=== PATIENT | female | born 1990 | race Caucasian/White ===

== ENCOUNTER → 2016-09-18 | Outpatient (CLI) | payer BC ==
--- NOTE | 2016-09-19 02:26 | MR ---
EXAMINATION TYPE: MR wrist LT wo con DATE OF EXAM: 09/18/2016 COMPARISON: NONE HISTORY: Palpable lump anterior wrist, has been there for several years, recent numbness in fingers Standard multiplanar, multisequence MRI departmental protocol Multiplanar, multisequence images of the left wrist were acquired. FINDINGS: Flexor and extensor tendons of the wrist appear intact. Carpal bones of normal signal patte rn without evidence of edema. There is no evidence of fracture. Distal radius and ulna appear intact. Proximal metacarpals appear intact. There is a 6 x 4 mm rounded fluid collection in the dorsal aspec t of the lunate. Granular cartilage appears intact. IMPRESSION: No fracture. Small synovial cyst noted on the posterior aspect of the lunate.
== END | disposition home or self-care (01) ==
LOC: EDSEX → RADMRIMAIN 19:48
PROVIDERS: ATTEND Orthopaedic Surgery
DX: M71.332 Other bursal cyst, left wrist (principal)

== ENCOUNTER → 2020-06-21 | Outpatient (CLI) | payer BC ==
--- NOTE | 2020-06-23 21:49 | CT ---
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 TECHNIQUE: Axial images at 3 mm thick sections. Reconstructed images in the coronal plane and sagitt al plane are reviewed. FINDINGS: Limited CT sections are obtained the lung apices. The lung apices appear clear. CT neck: The torus tubarius and fossa of Rosenmuller are normal. Robot Designer spaces are normal. Ther e is mucosal thickening through the right maxillary sinus. Remaining paranasal sinuses visualized tom ear clear. Mastoid air cells are clear. There is been a left parotidectomy. Soft tissue thickening is to the left more superficial area later al to the sternocleidomastoid muscle. This is nonspecific and can be postsurgical in nature. Submandi bular glands, are normal. Parapharyngeal spaces are normal. No suspicious adenopathy is evident. The hypopharynx appears within normal limits. Vocal cord level appear symmetrical. Little thyroid is visualized. This may be atrophic or postsurgical. No acute changes are evident within the osseous structures. IMPRESSIONS: 1. Status post left parotidectomy. Postsurgical changes. 3 present superficially. Recurrent masses de ep to the musculature within the parotid bed are not evident. 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 CONTRAST: Performed injected with 100 ml mL of Isovue 300. TECHNIQUE: Axial images were obtained at 5 mm thick sections. Reconstructed images are reviewed on [employer] computer in the coronal plane. FINDINGS: Thyroid is poorly visualized. No suspicious lung nodules or focal infiltrates are present. No enlarged mediastinal or hilar adenopathy is evident. The ascending aorta diameter at the level o f the main pulmonary artery is 3.1 cm. The main pulmonary artery diameter at the bifurcation is 0.[address] sections are obtained through the upper abdomen. Abdomen is essentially unremarkable. IMPRESSIONS: 1. Normal Chest CT. No suspicious changes to suggest metastatic disease.
== END | disposition home or self-care (01) ==
LOC: RADCTMAIN 09:53
PROVIDERS: ATTEND Otolaryngology
DX: C07 Malignant neoplasm of parotid gland (principal)
CPT/HCPCS: 70491; 71260; Q9967

== ENCOUNTER → 2020-07-01 | Outpatient (CLI) | payer BC | END | disposition home or self-care (01) | LOC: LABWHC1 15:50 | PROVIDERS: ATTEND Nurse Practitioner | DX: U07.1 COVID-19 (principal) | CPT/HCPCS: 87635; C9803 ==

== ENCOUNTER 2021-06-21 08:16 | Emergency (ER) | payer BC ==
[2021-06-21] MEDS ORDERED: methylPREDNISolone SOD SUCCI 125 MG/2 ML VIAL IM ONE (08:29)
[2021-06-21] MEDS ORDERED: diphenhydrAMINE 25 MG CAP PO STA (08:29)
[2021-06-21] MEDS ORDERED: FAMOTIDINE 20 MG TAB PO STA (08:29)
[2021-06-21 09:06] VITALS: BP 134/78; PULSE 88; RESP 18; TEMP 98.6
--- NOTE | 2021-06-21 09:09 | ED ---
General Adult HPI - General Chief complaint: Skin/Abscess/Foreign Body Stated complaint: Hives, post CT Time Seen by Provider: 06/21/21 08:19 Source: patient, RN notes reviewed, old records reviewed Mode of arrival: ambulatory Limitations: no limitations - History of Present Illness Initial comments: Patient is a 30-year-old male with past history remarkable for cancer, neck surgery who was receiving a CT scan outpatient to evaluate and follow up on his cancer presents to the emergency department after experiencing an urticarial rash following contrast administration.Describes the rash as small red bumps that itch. Denies any difficulty breathing, difficulty swallowing, tongue swelling. Is not currently undergoing radiation and chemo. Currently otherwise is resting comfortably. IV was pulled and he was sent over to the emergency department for evaluation. Has no known ALLERGIES. Denies chest pain, nausea, vomiting, diarrhea, abdominal pain, shortness of breath. - Related Data Home Medications Medication Instructions Recorded Confirmed Levothyroxine Sodium [Synthroid] 75 mcg PO DAILY 02/14/14 02/05/15 Testosterone Cypionate 100 mg IM DIRECTED 02/14/14 02/05/15 [Depo-Testosterone] Atorvastatin [Lipitor] 1 tab PO DAILY 02/05/15 02/05/15 Omeprazole 1 tab PO DAILY 02/05/15 02/05/15 Previous Rx's Medication Instructions Recorded Cyclobenzaprine [Flexeril] 10 mg PO TID PRN #15 tab 02/14/14 Famotidine 40 mg PO DAILY 7 Days #7 tab 06/21/21 diphenhydrAMINE HCL [Benadryl] 25 mg PO Q6HR PRN #28 tab 06/21/21 Allergies Allergy/AdvReac Type Severity Reaction Status Date / Time Iodine and Iodide Containing Allergy Rash/Hives Verified 06/21/21 09:49 Produc Review of Systems ROS Statement: Those systems with pertinent positive or pertinent negative responses have been documented in the HPI. Review of Systems: CONST: Denies fever EYES: Denies blurry vision ENT: Denies nasal congestion C/V: Denies Chest pain RESP: Denies shortness of breath GI: Denies abdominal pain : Denies dysuria SKIN: Endorses itchy rash to chest. MSK: Denies joint pain. NEURO: Denies headache ROS Other: All systems not noted in ROS Statement are negative. Past Medical History Past Medical History: Cancer, Hyperlipidemia, Thyroid Disorder Additional Past Medical History / Comment(s): thyroid cancer History of Any Multi-Drug Resistant Organisms: None Reported Past Surgical History: Adenoidectomy, Ear Surgery, Tonsillectomy Additional Past Surgical History / Comment(s): thyroidectomy Past Psychological History: No Psychological Hx Reported Smoking Status: Never smoker Past Alcohol Use History: None Reported Past Drug Use History: Marijuana General Exam - General Exam Comments Initial Comments: General: Appears in no acute distress. HEAD: Normal with no signs of head trauma. EYES: PERRLA, EOMI, conjunctiva normal, no discharge. ENT: Hearing grossly intact, normal oropharynx. No stridor auscultated. RESPIRATORY: Clear breath sounds bilaterally. No wheezes, rales, or rhonchi. No hypoxia. No increased work of breathing. C/V: Regular rate and rhythm. S1 and S2 auscultated, no edema, peripheral pulses 2+ and intact throughout ABD: Abd is soft, nontender, nondistended EXT: Normal range of motion, no obvious deformity SKIN: Erythematous papular rash located over the anterior chest NEURO: Alert and oriented x 4. Cranial nerves II-XII intact. No focal sensory or strength deficits. Limitations: no limitations Course Vital Signs 06/21/21 06/21/21 08:17 09:05 Temperature 98.5 F 98.6 F Pulse Rate 74 88 Respiratory 20 18 Rate Blood Pressure 120/75 134/78 O2 Sat by Pulse 97 99 Oximetry Medical Decision Making - Medical Decision Making Based on the patient's presentation and physical exam, does appear that he had a ALLERGIC reaction, localized urticaria to the chest following contrast dye administration. I did update his ALLERGY chart. His no signs of anaphylaxis at this time, including no stridor, difficulty breathing, hypoxia, nausea, vomiting. Has no difficulty swallowing and is tolerating oral intake. He was administered contrast dye approximately 20 minutes prior to arrival. He is resting comfortably at this time. I do not believe that we require any laboratory studies or imaging at this time. He will be administered a steroid injection as well as famotidine and Benadryl. He'll be observed until approximately 9 AM. He was in agreement this plan. Patient tolerated the medications well. Rashes improved and itching is improved at this time. Vital signs remained within normal limits and stable throughout his stay. I believe it is safe for him to be discharged home. He was in agreement with this plan. We discussed signs of worsening ALLERGIC reaction including difficulty breathing, nausea, vomiting, difficulty swallowing. He'll be given a prescription for Benadryl and famotidine for home. He was in agreement with the plan. I will provide the patient with a prescription for famotidine, Benadryl. I instructed the patient to follow up with their PCP in the next 3 days. I explained that the patient should return to the emergency department if they experience any worsening symptoms. Strict return precautions were discussed with the patient. The patient expressed understanding of these instructions. I answered all questions that the patient had. The patient was discharged home in good condition with their prescriptions and follow up information. Disposition Clinical Impression: Allergic reaction Disposition: HOME SELF-CARE Condition: Good Instructions (If sedation given, give patient instructions): Urticaria (ED), Allergies (ED) Prescriptions: diphenhydrAMINE HCL [Benadryl] 25 mg PO Q6HR PRN #28 tab PRN Reason: Itching Famotidine 40 mg PO DAILY 7 Days #7 tab Is patient prescribed a controlled substance at d/c from ED?: No Referrals: Miller Flores MD [Primary Care Provider] - 1-2 days Time of Disposition: 09:00
== END 2021-06-21 09:04 | disposition home or self-care (01) ==
LOC: EDSEX → EC 08:16
DX: T78.40XA Allergy, unspecified, initial encounter (principal); E78.5 Hyperlipidemia, unspecified; Z79.890 Hormone replacement therapy; Z79.899 Other long term (current) drug therapy
CPT/HCPCS: 99283; 96372; J2930

== ENCOUNTER → 2021-06-21 | Outpatient (CLI) | payer BC ==
--- NOTE | 2021-06-22 22:01 | CT ---
EXAMINATION TYPE: CT soft tissue neck w con DATE OF EXAM: 06/21/2021 HISTORY: HX of Parotid gland and thyroid cancer COMPARISON: CT neck and chest one year earlier. CT DLP: 873.60 mGycm. Automated Exposure Control for Dose Reduction was Utilized. TECHNIQUE: CT scan of the neck is performed with IV Contrast, patient injected with 100 ml mL of Iso ele 300, axial images are obtained, coronal and sagittal reformatted images are reviewed. FINDINGS: Airway: Increased soft tissue anterior superior mediastinum likely reflects thymic rebound unchanged from prior. Somewhat small size thyroid gland redemonstrated. Parotid/submandibular glands: Slight asymmetric diminished size to left submandibular gland redemonst rated. Extensive surgical change to the left parotid gland again seen. There are deeper surgical clip s with fat density graft along with lateral irregular soft tissue or scarring extending superiorly to the level of the ear redemonstrated. No significant change from prior study. No new enhancing masses are greater than 1 cm adenopathy identified. Carotid/Vascular Structures: No significant abnormality. Osseous Structures: Slight scoliotic curvature on the coronal images redemonstrated. Other: Mucous retention cysts and/or polyps in the posterior inferior right maxillary sinus redemonst rated. IMPRESSION: Extensive posttreatment changes to the region of the left parotid gland redemonstrated. N o suspicious new or enlarging masses or adenopathy to suggest neoplastic recurrence.
== END | disposition home or self-care (01) ==
LOC: RADCTMAIN 07:30 → EDSEX 07:30
PROVIDERS: ATTEND Otolaryngology
DX: C07 Malignant neoplasm of parotid gland (principal)
CPT/HCPCS: 70491; Q9967

== ENCOUNTER → 2021-09-05 | Outpatient (CLI) | payer BC ==
--- NOTE | 2021-09-05 07:40 | CT ---
EXAMINATION TYPE: CT sinus wo con DATE OF EXAM: 09/05/2021 COMPARISON: None HISTORY: Chronic Sinusitis CT DLP: 590.[address] of the paranasal sinuses was performed in the axial and coronal planes. Bone and soft tissue settings are submitted. The paranasal sinuses demonstrate normal aeration and development. Mucosal thickening is noted to involve the bilateral maxillary sinuses right greater than left with s ome mucous retention cysts seen within the right maxillary sinus. Mild mucosal thickening right-sided ethmoid air cells. Remaining paranasal sinuses are well-aerated. The osteal meatal units are patent bilaterally. The nasal septum is midline. No bony destructive changes are seen within the field of view. IMPRESSION: Chronic sinusitis.
== END | disposition home or self-care (01) ==
LOC: RADCTMAIN 06:33
PROVIDERS: ATTEND Otolaryngology
DX: J32.9 Chronic sinusitis, unspecified (principal)
CPT/HCPCS: 70486

== ENCOUNTER → 2023-01-21 | Outpatient (CLI) | payer MEDICAID ==
--- NOTE | 2023-01-21 19:59 | CT ---
EXAMINATION TYPE: CT soft tissue neck w con DATE OF EXAM: 01/21/2023 COMPARISON: 06/21/2021 HISTORY: Malignant neoplasm of parotid gland. Hx of thyroid cancer. CT DLP: 934.2 mGycm CONTRAST: Patient injected with 100ml mL of Isovue 300. TECHNIQUE: Axial images at 3 mm thick sections. Reconstructed images in the coronal plane and sagitt al plane are reviewed. FINDINGS: Limited CT sections are obtained the lung apices. The lung apices appear clear. CT neck: The torus tubarius and fossa of Rosenmuller are normal. Sleever spaces are normal. Para nasal sinuses and mastoid air cells are clear. Left parotid gland is surgically absent. The right parotid gland appears unremarkable. Submandibular glands, are normal. Parapharyngeal spaces are normal. No suspicious adenopathy is evident. The hypopharynx appears within normal limits. Vocal cord level appear symmetrical. Thyroid as visualized is normal. Osseous structures are normal. IMPRESSION: 1. No suspicious changes of recurrent or metastatic left parotid gland neoplasm.
== END | disposition home or self-care (01) ==
LOC: RADCTMAIN 07:40
PROVIDERS: ATTEND Radiology Radiation Oncology
DX: C07 Malignant neoplasm of parotid gland (principal); K13.70 Unspecified lesions of oral mucosa; Z90.89 Acquired absence of other organs; Z92.3 Personal history of irradiation; Z85.850 Personal history of malignant neoplasm of thyroid; Z85.50 Personal history of malignant neoplasm of unspecified urinary tract organ
CPT/HCPCS: 70491; Q9967

== ENCOUNTER 2023-04-21 08:57 | Emergency (ER) | payer MEDICAID ==
[2023-04-21 09:12] VITALS: RESP 18; TEMP 98.3
--- NOTE | 2023-04-21 09:48 | XR ---
EXAMINATION TYPE: XR chest 2V DATE OF EXAM: 04/21/2023 COMPARISON: NONE HISTORY: Chest pain TECHNIQUE: Frontal and lateral views of the chest are obtained. FINDINGS: There is no focal air space opacity. No evidence for pneumothorax. No pleural effusion. The cardiac silhouette size is within normal limits. The osseous structures are grossly intact. IMPRESSION: 1. No acute cardiopulmonary process.
--- NOTE | 2023-04-21 10:30 | ED ---
URI HPI - General Chief Complaint: Upper Respiratory Infection Stated Complaint: BLOODY MUCUS Time Seen by Provider: 04/21/23 09:03 Source: patient, RN notes reviewed Mode of arrival: ambulatory Limitations: no limitations - History of Present Illness Initial Comments: 32-year-old male presents emergency department with chief complaint of cough and congestion. Patient states he has had possible fever chills body aches increasing nasal congestion, facial pressure and productive cough. He states his cough is productive with mucus that had bloody specks in it. He states that his chest is very tight. Patient states he does have a history of asthma in which she was seen Dr. Rick in the past. Patient denies any localized abdominal pain - Related Data Home Medications Medication Instructions Recorded Confirmed Levothyroxine Sodium [Synthroid] 75 mcg PO DAILY 02/14/14 02/05/15 Testosterone Cypionate 100 mg IM DIRECTED 02/14/14 02/05/15 [Depo-Testosterone] Atorvastatin [Lipitor] 1 tab PO DAILY 02/05/15 02/05/15 Omeprazole 1 tab PO DAILY 02/05/15 02/05/15 Previous Rx's Medication Instructions Recorded Cyclobenzaprine [Flexeril] 10 mg PO TID PRN #15 tab 02/14/14 Famotidine 40 mg PO DAILY 7 Days #7 tab 06/21/21 diphenhydrAMINE HCL [Benadryl] 25 mg PO Q6HR PRN #28 tab 06/21/21 Amoxic-Pot Clav 875-125Mg 1 tab PO Q12HR #20 tab 04/21/23 [Augmentin 875-125] Fluconazole [Diflucan] 150 mg PO ONCE #5 tab 04/21/23 predniSONE 50 mg PO DAILY #5 tab 04/21/23 Allergies Allergy/AdvReac Type Severity Reaction Status Date / Time Iodine and Iodide Containing Allergy Rash/Hives Verified 04/21/23 09:03 Produc Review of Systems ROS Statement: Those systems with pertinent positive or pertinent negative responses have been documented in the HPI. ROS Other: All systems not noted in ROS Statement are negative. Past Medical History Past Medical History: Cancer, Hyperlipidemia, Thyroid Disorder Additional Past Medical History / Comment(s): thyroid cancer History of Any Multi-Drug Resistant Organisms: None Reported Past Surgical History: Adenoidectomy, Ear Surgery, Tonsillectomy Additional Past Surgical History / Comment(s): thyroidectomy Past Psychological History: No Psychological Hx Reported, ADD/ADHD Smoking Status: Never smoker Past Alcohol Use History: None Reported, Rare Past Drug Use History: Marijuana General Exam Limitations: no limitations General appearance: alert, in no apparent distress Head exam: Present: atraumatic, normocephalic, normal inspection Neck exam: Present: normal inspection. Absent: tenderness, meningismus, lymphadenopathy Respiratory exam: Present: wheezes, decreased breath sounds. Absent: normal lung sounds bilaterally, respiratory distress, rales, rhonchi, stridor Cardiovascular Exam: Present: regular rate, normal rhythm, normal heart sounds. Absent: systolic murmur, diastolic murmur, rubs, gallop, clicks GI/Abdominal exam: Present: soft, normal bowel sounds. Absent: distended, tenderness, guarding, rebound, rigid Course Vital Signs 04/21/23 04/21/23 04/21/23 08:58 09:19 10:49 Temperature 98.3 F Pulse Rate 95 88 Respiratory 18 18 Rate Blood Pressure 116/78 O2 Sat by Pulse 99 Oximetry 04/21/23 04/21/23 11:06 11:41 Temperature 98.3 F Pulse Rate 92 90 Respiratory 18 Rate Blood Pressure 120/84 O2 Sat by Pulse 99 Oximetry Medical Decision Making - Medical Decision Making Was pt. sent in by a medical professional or institution (RACHAEL Blas, SECURITY POLICE OFFICER, urgent care, hospital, or long term...) When possible be specific @ -No Did you speak to anyone other than the patient for history (EMS, parent, family, police, friend...)? What history was obtained from this source @ -No Did you review nursing and triage notes (agree or disagree)? Why? @ -I reviewed and agree with nursing and triage notes Were old charts reviewed (outside hosp., previous admission, EMS record, old EKG, old radiological studies, urgent care reports/EKG's, long term records)? Report findings @ -No old charts were reviewed Differential Diagnosis (chest pain, altered mental status, abdominal pain women, abdominal pain men, vaginal bleeding, weakness, fever, dyspnea, syncope, headache, dizziness, GI bleed, back pain, seizure, CVA, palpatations, mental health, musculoskeletal)? @ -COVID 19, RSV, influenza, pneumonia, acute bronchitis, URI, this list is not all inclusive EKG interpreted by me (3pts min.). @ -[None X-rays interpreted by me (1pt min.). @ -Chest today shows no acute cardiopulmonary process CT interpreted by me (1pt min.). @ -[None done U/S interpreted by me (1pt. min.). @ -None done What testing was considered but not performed or refused? (CT, X-rays, U/S, labs)? Why? @ -None What meds were considered but not given or refused? Why? @ -None Did you discuss the management of the patient with other professionals (professionals i.e. , PA, SECURITY POLICE OFFICER, lab, RT, psych nurse, older adult social work specialist, registered pharmacist, teacher, corporate officer, catalytic case operator)? Give summary @ -No Was smoking cessation discussed for >3mins.? @ -No Was critical care preformed (if so, how long)? @ -No Were there social determinants of health that impacted care today? How? (Homelessness, low income, unemployed, alcoholism, drug addiction, transpor tation, low edu. Level, literacy, decrease access to med. care, assisted, rehab)? @ -No Was there de-escalation of care discussed even if they declined (Discuss DNR or withdrawal of care, Hospice)? DNR status @ -No What co-morbidities impacted this encounter? (DM, HTN, Smoking, COPD, CAD, Cancer, CVA, ARF, Chemo, Hep., AIDS, mental health diagnosis, sleep apnea, morbid obesity)? @ -[Asthma Was patient admitted / discharged? Hospital course, mention meds given and route, prescriptions, significant lab abnormalities, going to OR and other pertinent info. @ -Patient has diffuse wheezing, rhonchi. Patient does not have evidence of pneumonia on x-ray though concern for early pneumonia changes. Patient was given soluMedrol, Rocephin was given breathing treatment which has improved some. Patient discharged on antibiotics, steroids Undiagnosed new problem with uncertain prognosis? @ -[No Drug Therapy requiring intensive monitoring for toxicity (Heparin, Nitro, Insulin, Cardizem)? @ -No Were any procedures done? @ -No Diagnosis/symptom? @ -[Tracheobronchitis, asthmatic Acute, or Chronic, or Acute on Chronic? @ -Acute Uncomplicated (without systemic symptoms) or Complicated (systemic symptoms)? @ -[Uncomplicated Side effects of treatment? @ -[No Exacerbation, Progression, or Severe Exacerbation? @ -No Poses a threat to life or bodily function? How? (Chest pain, [place], SC, pneumonia, PE, COPD, DKA, ARF, appy, cholecystitis, CVA, Diverticulitis, Homicidal, Suicidal, threat to staff... and all critical care pts) @ -No - Lab Data Lab Results 04/21/23 Range/Units 09:28 Influenza Type A (PCR) Not Detected (Not Detectd) Influenza Type B (PCR) Not Detected (Not Detectd) RSV (PCR) Not Detected (Not Detectd) SARS-CoV-2 (PCR) Not Detected (Not Detectd) Disposition Clinical Impression: Tracheobronchitis, Asthmatic bronchitis Disposition: HOME SELF-CARE Condition: Stable Instructions (If sedation given, give patient instructions): Upper Respiratory Infection (ED) Additional Instructions: Please return to the Emergency Department if symptoms worsen or any other concerns. Prescriptions: Amoxic-Pot Clav 875-125Mg [Augmentin 875-125] 1 tab PO Q12HR #20 tab Fluconazole [Diflucan] 150 mg PO ONCE #5 tab predniSONE 50 mg PO DAILY #5 tab Is patient prescribed a controlled substance at d/c from ED?: No Referrals: Miller Flores MD [Primary Care Provider] - 1-2 days Tyrone Norris MD [STAFF PHYSICIAN] - 1-2 days Time of Disposition: 11:11
[2023-04-21] MEDS: IPRATROPIUM-ALBUTEROL 3 ML NEB INHALATION STA (10:49)
[2023-04-21] MEDS: ACET/COD 300 MG/30 MG STARTER PACK 6 TAB BTL PO STA (11:35)
[2023-04-21] MEDS: methylPREDNISolone SOD SUCCI 125 MG/2 ML VIAL IM ONE (11:35)
[2023-04-21] MEDS: cefTRIAXone 1,000 MG VIAL (IM USE) IM STA (11:35)
[2023-04-21 11:45] VITALS: BP 120/84; PULSE 90
== END 2023-04-21 11:43 | disposition home or self-care (01) ==
LOC: EC 08:57
DX: J20.0 Acute bronchitis due to Mycoplasma pneumoniae (principal); J45.901 Unspecified asthma with (acute) exacerbation; E78.5 Hyperlipidemia, unspecified; E07.9 Disorder of thyroid, unspecified; F12.90 Cannabis use, unspecified, uncomplicated; Z79.890 Hormone replacement therapy; Z79.899 Other long term (current) drug therapy; Z88.8 Allergy status to other drugs, medicaments and biological substances; Z20.822 Contact with and (suspected) exposure to COVID-19
CPT/HCPCS: 94640; 87636; 71046; 99283; 96372 ×2; J2930; J0696

== ENCOUNTER 2023-06-12 20:15 | Emergency (ER) | payer MEDICAID ==
[2023-06-12 21:00] VITALS: TEMP 98
[2023-06-12] MEDS: predniSONE 20 MG TAB PO STA (21:18)
--- NOTE | 2023-06-12 22:30 | XR ---
EXAMINATION TYPE: XR chest 2V DATE OF EXAM: 06/12/2023 COMPARISON: 04/21/2023 INDICATION: Wheezing and shortness of breath chest pain TECHNIQUE: Frontal and lateral views of the chest are obtained. FINDINGS: The heart size is normal. The pulmonary vasculature is normal. The lungs are clear. IMPRESSION: 1. No acute pulmonary process.
[2023-06-12] MEDS: IPRATROPIUM-ALBUTEROL 3 ML NEB INHALATION STA (22:40)
--- NOTE | 2023-06-12 23:10 | ED ---
General Adult HPI - General Chief complaint: Shortness of Breath Stated complaint: asthma attack Time Seen by Provider: 06/12/23 20:38 Source: patient Mode of arrival: ambulatory Limitations: no limitations - History of Present Illness Initial comments: 32-year-old male with a past medical history significant for asthma presenting to the ED with a chief complaint of dyspnea. Patient reports yesterday onset of some cough, congestion, and dyspnea. Since onset, reports worsening of his symptoms prompting presentation to the ED for further evaluation. No fever or chills. No chest pain. No abdominal pain. No nausea or vomiting. No changes in bowel or bladder habits. No other complaints at this time. - Related Data Home Medications Medication Instructions Recorded Confirmed Levothyroxine Sodium [Synthroid] 75 mcg PO DAILY 02/14/14 02/05/15 Testosterone Cypionate 100 mg IM DIRECTED 02/14/14 02/05/15 [Depo-Testosterone] Atorvastatin [Lipitor] 1 tab PO DAILY 02/05/15 02/05/15 Omeprazole 1 tab PO DAILY 02/05/15 02/05/15 Previous Rx's Medication Instructions Recorded Cyclobenzaprine [Flexeril] 10 mg PO TID PRN #15 tab 02/14/14 Famotidine 40 mg PO DAILY 7 Days #7 tab 06/21/21 diphenhydrAMINE HCL [Benadryl] 25 mg PO Q6HR PRN #28 tab 06/21/21 Amoxic-Pot Clav 875-125Mg 1 tab PO Q12HR #20 tab 04/21/23 [Augmentin 875-125] Fluconazole [Diflucan] 150 mg PO ONCE #5 tab 04/21/23 predniSONE 50 mg PO DAILY #5 tab 04/21/23 Ondansetron Odt [Zofran Odt] 4 mg PO Q8HR PRN #14 tab 06/03/23 Oseltamivir [Tamiflu] 75 mg PO Q12HR #10 cap 06/12/23 predniSONE [Deltasone] 20 mg PO TID #15 tab 06/12/23 Allergies Allergy/AdvReac Type Severity Reaction Status Date / Time Iodine and Iodide Containing Allergy Rash/Hives Verified 04/21/23 09:03 Produc Review of Systems ROS Statement: Those systems with pertinent positive or pertinent negative responses have been documented in the HPI. ROS Other: All systems not noted in ROS Statement are negative. Past Medical History Past Medical History: Cancer, Hyperlipidemia, Thyroid Disorder Additional Past Medical History / Comment(s): thyroid cancer History of Any Multi-Drug Resistant Organisms: None Reported Past Surgical History: Adenoidectomy, Ear Surgery, Tonsillectomy Additional Past Surgical History / Comment(s): thyroidectomy Past Psychological History: No Psychological Hx Reported, ADD/ADHD Smoking Status: Never smoker Past Alcohol Use History: None Reported, Rare Past Drug Use History: Marijuana General Exam Limitations: no limitations General appearance: alert, in no apparent distress, obese Eye exam: Present: normal appearance Neck exam: Present: normal inspection Respiratory exam: Present: wheezes, decreased breath sounds Cardiovascular Exam: Present: regular rate GI/Abdominal exam: Present: soft Neurological exam: Present: alert, oriented X3 Skin exam: Present: warm, dry Course Vital Signs 06/12/23 06/12/23 06/12/23 20:33 22:40 22:48 Temperature 98 F Pulse Rate 102 H 90 92 Respiratory 24 Rate Blood Pressure 103/73 O2 Sat by Pulse 98 Oximetry Medical Decision Making - Medical Decision Making Was pt. sent in by a medical professional or institution (, PA, [employer], urgent care, hospital, or long-term...) When possible be specific @ -No Did you speak to anyone other than the patient for history (EMS, parent, family, police, friend...)? What history was obtained from this source @ -No Did you review nursing and triage notes (agree or disagree)? Why? @ -I reviewed and agree with nursing and triage notes Were old charts reviewed (outside hosp., previous admission, EMS record, old EKG, old radiological studies, urgent care reports/EKG's, long-term records)? Report findings @ -No old charts were reviewed Differential Diagnosis (chest pain, altered mental status, abdominal pain women, abdominal pain men, vaginal bleeding, weakness, fever, dyspnea, syncope, headache, dizziness, GI bleed, back pain, seizure, CVA, palpatations, mental health, musculoskeletal)? @ -Differential Dyspnea: Coronary syndrome, arrhythmia, tamponade, asthma, COPD, pulmonary embolism, pneumonia, pneumothorax, pulmonary effusion, anaphylaxis, diabetic ketoacidosis, flailed chest, pulmonary contusion, diaphragmatic rupture, anemia, neuromuscular, this is not meant to be an all-inclusive list. EKG interpreted by me (3pts min.). @ -None X-rays interpreted by me (1pt min.). @ -Chest x-ray interpreted me revealing no evidence of acute finding. CT interpreted by me (1pt min.). @ -None done U/S interpreted by me (1pt. min.). @ -None done What testing was considered but not performed or refused? (CT, X-rays, U/S, labs)? Why? @ -None What meds were considered but not given or refused? Why? @ -None Did you discuss the management of the patient with other professionals (professionals i.e. , PA, [employer], lab, RT, psych nurse, social science teacher, archeology faculty member, teacher, dental officer, complex case manager)? Give summary @ -No Was smoking cessation discussed for >3mins.? @ -No Was critical care preformed (if so, how long)? @ -No Were there social determinants of health that impacted care today? How? (Homelessness, low income, unemployed, alcoholism, drug addiction, transportation, low edu. Level, literacy, decrease access to med. care, penitentiary, rehab)? @ -No Was there de-escalation of care discussed even if they declined (Discuss DNR or withdrawal of care, Hospice)? DNR status @ -No What co-morbidities impacted this encounter? (DM, HTN, Smoking, COPD, CAD, Cancer, CVA, ARF, Chemo, Hep., AIDS, mental health diagnosis, sleep apnea, morbid obesity)? @ -Asthma, obesity Was patient admitted / discharged? Hospital course, mention meds given and route, prescriptions, significant lab abnormalities, going to OR and other pertinent info. @ -Discharge 52-year-old male presenting to the ED with complaints of cough and congestion for the past 2 days. On examination does have diffuse wheezes. Serology panel positive for influenza A. Chest x-ray revealed no evidence of acute finding. Patient did report some improvement after breathing treatment here. After breathing treatment still some wheezes present diffusely in bilateral lung jones however no accessory muscle use. Respiratory rate regular. No evidence of respiratory distress. Provided prednisone and Tamiflu prescription. Discharged home in stable condition. Discussed return precautions with patient and family who verbalized agreement. Undiagnosed new problem with uncertain prognosis? @ -No Drug Therapy requiring intensive monitoring for toxicity (Heparin, Nitro, Insulin, Cardizem)? @ -No Were any procedures done? @ -No Diagnosis/symptom? @ -Influenza A, asthma exacerbation Acute, or Chronic, or Acute on Chronic? @ -Acute Uncomplicated (without systemic symptoms) or Complicated (systemic symptoms)? @ -Uncomplicated Side effects of treatment? @ -No Exacerbation, Progression, or Severe Exacerbation? @ -Asthma exacerbation Poses a threat to life or bodily function? How? (Chest pain, [place], NC, pneumonia, PE, COPD, DKA, ARF, appy, cholecystitis, CVA, Diverticulitis, Homicidal, Suicidal, threat to staff... and all critical care pts) @ -Unlikely - Lab Data Lab Results 06/12/23 Range/Units 20:56 Influenza Type A (PCR) Detected A (Not Detectd) Influenza Type B (PCR) Not Detected (Not Detectd) RSV (PCR) Not Detected (Not Detectd) SARS-CoV-2 (PCR) Not Detected (Not Detectd) Disposition Clinical Impression: Influenza A, Asthma exacerbation Disposition: HOME SELF-CARE Condition: Good Instructions (If sedation given, give patient instructions): Asthma (ED), Influenza (ED) Additional Instructions: Please return to the Emergency Department if symptoms worsen or any other concerns. Please follow-up with your primary care provider. Prescriptions: predniSONE [Deltasone] 20 mg PO TID #15 tab Oseltamivir [Tamiflu] 75 mg PO Q12HR #10 cap Is patient prescribed a controlled substance at d/c from ED?: No Referrals: Miller Flores MD [Primary Care Provider] - 1-2 days Time of Disposition: 23:16
[2023-06-12] MEDS: OSELTAMIVIR 75 MG CAP PO STA (23:28)
[2023-06-12 23:56] VITALS: BP 134/76; PULSE 90; RESP 18
== END 2023-06-12 23:29 | disposition home or self-care (01) ==
LOC: EC 20:15
DX: J10.1 Influenza due to other identified influenza virus with other respiratory manifestations (principal); E66.9 Obesity, unspecified; J45.901 Unspecified asthma with (acute) exacerbation; Z68.43 Body mass index [BMI] 50.0-59.9, adult; Z91.041 Radiographic dye allergy status
CPT/HCPCS: 99285; 94640; 87636; 71046; J7512

== ENCOUNTER → 2024-02-01 | Outpatient (CLI) | payer MEDICAID ==
--- NOTE | 2024-02-01 16:08 | MR ---
INDICATION: Patient age:Male; 33 years old; Reason for study: C07 MALIGNANT NEOPLASM OF PAROTID GLAND; [facility]. COMPARISON: CT neck 01/21/2023, 06/21/2021, CT sinuses 09/05/2021, CT neck and chest 06/21/2020. TECHNIQUE: Multi planar, multi sequence imaging was performed of the neck soft tissues. The patient was given 10 cc of Gadavist intravenously. FINDINGS: The visualized portion of the brain appears unremarkable. Visualized portions of the orbits appear un remarkable. Stable mucous retention cyst within the inferior right maxilla sinus measuring up to 2.4 cm. Remaining visualized paranasal sinuses are unremarkable. Skull base appears unremarkable. The fossa of Rosenmuller appears normal. The right parotid gland appears unremarkable with a few smal l stable peripheral lymph nodes. Postsurgical changes from resection of the left parotid gland with s ome residual stable scarring and fat graft extending into the supraclavicular region. No new suspicio us enhancing lesion within the surgical bed. The submandibular and sublingual space contents appear intact. The epiglottis, aryepiglottic folds and piriform sinuses are normal. The umbilical appears normal. Th e larynx and trachea appear normal. The thyroid great is surgically absent. No abnormal enhancement w ithin the thyroidectomy bed. The carotid space contents appear unremarkable. The prevertebral space appears unremarkable. Few stable scattered nonenlarged cervical lymph nodes identified. No abnormal contrast enhancement i dentified. The osseous structures appear intact without abnormal contrast enhancement. IMPRESSION: Postsurgical changes from a left parotidectomy and thyroidectomy without evidence for suspicious recu rrence/metastatic disease. [facility], , 02/01/2024 4:06 PM
== END | disposition home or self-care (01) ==
LOC: RADMRIMAIN 13:32
PROVIDERS: ATTEND Radiology Radiation Oncology
DX: C07 Malignant neoplasm of parotid gland (principal); K13.70 Unspecified lesions of oral mucosa; C73 Malignant neoplasm of thyroid gland; Z90.89 Acquired absence of other organs; Z92.3 Personal history of irradiation; Z85.850 Personal history of malignant neoplasm of thyroid
CPT/HCPCS: 70543; A9585

== ENCOUNTER 2024-05-31 13:09 | Emergency (ER) | payer MEDICAID ==
--- NOTE | 2024-05-31 14:15 | ED ---
GI Bleed HPI - General Chief complaint: GI Bleed Stated complaint: disorientation, NV Time Seen by Provider: 05/31/24 14:12 Source: patient, RN notes reviewed, old records reviewed Mode of arrival: ambulatory Limitations: no limitations - History of Present Illness Initial comments: 33-year-old male presented to the ER for evaluation of rectal bleeding. Patient reports in 2019 he was experiencing rectal bleeding and was supposed to see a specialist for colonoscopy. Patient reports this was pushed to the side as he was diagnosed with thyroid/salivary gland cancer. Not currently on chemotherapy or radiation. He states since summer 2023 he has been having reoccurring bouts of bright red blood per stool. He reports it is a stream blood in the stool. Over the past 3 days he has started to feel dizzy, lightheaded and weak and noticed blood clots in his stool. He also reports a left-sided cramping abdominal discomfort currently rating it a 4 out of 10. He states a recent diarrhea and has been taking Imodium but recently stopped as his primary care was concerned of a "blockage". He admits to nausea and vomiting but denies any hematemesis or coffee-ground emesis. Denies any blood thinner use, history of GI bleeds or prior blood transfusions. He has been taking Tums, omeprazole and ibuprofen for discomfort. Patient admits to a history of hemorrhoids. Patient was born female and still has his uterus and bilateral ovaries. Patient states PCP has done a through examination and patient is adamant bleeding is from rectum. He denies any fevers, chills, chest pain, shortness of breath, urinary complaints or peripheral edema. No personal history of ulcerative colitis or Crohn's disease. He does admit his mother was recently diagnosed with colon cancer. Patient is currently on bactrim for groin boil. . - Related Data Home Medications Medication Instructions Recorded Confirmed Levothyroxine Sodium [Synthroid] 75 mcg PO DAILY 02/14/14 02/05/15 Testosterone Cypionate 100 mg IM DIRECTED 02/14/14 02/05/15 [Depo-Testosterone] Atorvastatin [Lipitor] 1 tab PO DAILY 02/05/15 02/05/15 Omeprazole 1 tab PO DAILY 02/05/15 02/05/15 Previous Rx's Medication Instructions Recorded Cyclobenzaprine [Flexeril] 10 mg PO TID PRN #15 tab 02/14/14 Famotidine 40 mg PO DAILY 7 Days #7 tab 06/21/21 diphenhydrAMINE HCL [Benadryl] 25 mg PO Q6HR PRN #28 tab 06/21/21 Amoxic-Pot Clav 875-125Mg 1 tab PO Q12HR #20 tab 04/21/23 [Augmentin 875-125] Fluconazole [Diflucan] 150 mg PO ONCE #5 tab 04/21/23 predniSONE 50 mg PO DAILY #5 tab 04/21/23 Ondansetron Odt [Zofran Odt] 4 mg PO Q8HR PRN #14 tab 06/03/23 Oseltamivir [Tamiflu] 75 mg PO Q12HR #10 cap 06/12/23 predniSONE [Deltasone] 20 mg PO TID #15 tab 06/12/23 Diphenox-Atrop 2.5-0.025 mg 1 tab PO QID 3 Days #12 tablet 04/12/24 [Lomotil] Allergies Allergy/AdvReac Type Severity Reaction Status Date / Time Iodine and Iodide Containing Allergy Rash/Hives Verified 05/31/24 13:23 Produc Review of Systems ROS Statement: Those systems with pertinent positive or pertinent negative responses have been documented in the HPI. ROS Other: All systems not noted in ROS Statement are negative. Past Medical History Past Medical History: Cancer, Hyperlipidemia, Thyroid Disorder Additional Past Medical History / Comment(s): thyroid cancer, salivary gland cancer History of Any Multi-Drug Resistant Organisms: None Reported Past Surgical History: Adenoidectomy, Ear Surgery, Tonsillectomy Additional Past Surgical History / Comment(s): thyroidectomy Past Psychological History: No Psychological Hx Reported, ADD/ADHD Smoking Status: Never smoker Past Alcohol Use History: None Reported, Rare Past Drug Use History: Marijuana General Exam Limitations: no limitations General appearance: alert, in no apparent distress Respiratory exam: Present: normal lung sounds bilaterally. Absent: respiratory distress, wheezes, rales, rhonchi, stridor Cardiovascular Exam: Present: regular rate, normal rhythm, normal heart sounds. Absent: systolic murmur, diastolic murmur, rubs, gallop, clicks GI/Abdominal exam: Present: soft, tenderness (mild left), normal bowel sounds Rectal exam: Present: normal inspection, normal rectal tone, other (No hemorrhoids or anal fissures noted. No gross blood.) Neurological exam: Present: alert, oriented X3, CN II-XII intact Skin exam: Present: warm, dry, intact, normal color. Absent: rash Course Vital Signs 05/31/24 05/31/24 13:20 15:07 Temperature 97.5 F L Pulse Rate 64 68 Respiratory 18 18 Rate Blood Pressure 155/99 118/75 O2 Sat by Pulse 96 Oximetry - Reevaluation(s) Reevaluation #1: 05/31/24 14:44 Rectal exam performed and chaperoned by Hanane Hilliard RN. Medical Decision Making - Medical Decision Making Was pt. sent in by a medical professional or institution (, PA, RN ANESTHETIST, urgent care, hospital, or snf...) When possible be specific @ -[No] Did you speak to anyone other than the patient for history (EMS, parent, family, police, friend...)? What history was obtained from this source @ -[No] Did you review nursing and triage notes (agree or disagree)? Why? @ -[I reviewed and agree with nursing and triage notes] Were old charts reviewed (outside hosp., previous admission, EMS record, old EKG, old radiological studies, urgent care reports/EKG's, snf records)? Report findings @ -[No old charts were reviewed] Differential Diagnosis (chest pain, altered mental status, abdominal pain women, abdominal pain men, vaginal bleeding, weakness, fever, dyspnea, syncope, headache, dizziness, GI bleed, back pain, seizure, CVA, palpatations, mental health, musculoskeletal)? @ -Differential GI Bleed:Esophageal varices, aortoenteric fistula, Selena- Herrera, gastritis, peptic ulcer disease, diverticulosis, inflammatory bowel disease, hemorrhoids, fissure, colitis, malignancy, Meckel's diverticulum, this is not meant to be an all-inclusive list. EKG interpreted by me (3pts min.). @ - None done X-rays interpreted by me (1pt min.). @ -[None done] CT interpreted by me (1pt min.). @ -[None done] U/S interpreted by me (1pt. min.). @ -[None done] What testing was considered but not performed or refused? (CT, X-rays, U/S, labs)? Why? @ -[None] What meds were considered but not given or refused? Why? @ -[None] Did you discuss the management of the patient with other professionals (professionals i.e. , PA, RN ANESTHETIST, lab, RT, psych nurse, social service agency director, specimen accessioner, teacher, chief information security officer, case aide)? Give summary @ -[No] Was smoking cessation discussed for >3mins.? @ -[No] Was critical care preformed (if so, how long)? @ -[No] Were there social determinants of health that impacted care today? How? (Homelessness, low income, unemployed, alcoholism, drug addiction, transportation, low edu. Level, literacy, decrease access to med. care, shelter, rehab)? @ -[No] Was there de-escalation of care discussed even if they declined (Discuss DNR or withdrawal of care, Hospice)? DNR status @ -[No] What co-morbidities impacted this encounter? (DM, HTN, Smoking, COPD, CAD, Cancer, CVA, ARF, Chemo, Hep., AIDS, mental health diagnosis, sleep apnea, morbid obesity)? @ -[None] Was patient admitted / discharged? Hospital course, mention meds given and route, prescriptions, significant lab abnormalities, going to OR and other pertinent info. @ -[hospital course] Undiagnosed new problem with uncertain prognosis? @ -[No] Drug Therapy requiring intensive monitoring for toxicity (Heparin, Nitro, Insu rosanne, Cardizem)? @ -[No] Were any procedures done? @ -[No] Diagnosis/symptom? @ -[default] Acute, or Chronic, or Acute on Chronic? @ -[default] Uncomplicated (without systemic symptoms) or Complicated (systemic symptoms)? @ -[default] Side effects of treatment? @ -[No] Exacerbation, Progression, or Severe Exacerbation? @ -[No] Poses a threat to life or bodily function? How? (Chest pain, [place], [place], pneumonia, PE, COPD, DKA, ARF, appy, cholecystitis, CVA, Diverticulitis, Homicidal, Suicidal, threat to staff... and all critical care pts) @ -[No] - Lab Data Result diagrams: 05/31/24 14:34 05/31/24 14:34 Lab Results 03/19/25 03/19/25 03/19/25 Range/Units 14:20 14:28 14:34 WBC 11.6 H (3.8-10.6) k/uL RBC 5.81 (4.30-5.90) m/uL Hgb 16.8 (13.0-17.5) gm/dL Hct 49.8 (39.0-53.0) % MCV 85.8 (80.0-100.0) fL MCH 28.9 (25.0-35.0) pg MCHC 33.7 (31.0-37.0) g/dL RDW 13.2 (11.5-15.5) % Plt Count 345 (150-450) k/uL MPV 7.5 Neutrophils % 72 % Lymphocytes % 20 % Monocytes % 4 % Eosinophils % 3 % Basophils % 0 % Neutrophils # 8.3 H (1.3-7.7) k/uL Lymphocytes # 2.3 (1.0-4.8) k/uL Monocytes # 0.4 (0-1.0) k/uL Eosinophils # 0.3 (0-0.7) k/uL Basophils # 0.1 (0-0.2) k/uL PT (10.0-12.5) sec INR (<1.2) APTT (22.0-30.0) sec Sodium (137-145) mmol/L Potassium (3.5-5.1) mmol/L Chloride (98-107) mmol/L Carbon Dioxide (22-30) mmol/L Anion Gap mmol/L BUN (9-20) mg/dL Creatinine (0.66-1.25) mg/dL Est GFR (CKD-EPI)AfAm (>60 ml/min/1.73 sqM) Est GFR (CKD-EPI)NonAf (>60 ml/min/1.73 sqM) Glucose (74-99) mg/dL Plasma Lactic Acid Gary (0.7-2.0) mmol/L Calcium (8.4-10.2) mg/dL Total Bilirubin (0.2-1.3) mg/dL AST (17-59) U/L ALT (4-49) U/L Alkaline Phosphatase (38-126) U/L Total Protein (6.3-8.2) g/dL Albumin (3.5-5.0) g/dL Amylase (30-110) U/L Lipase (23-300) U/L Urine Color Urine Appearance (Clear) Urine pH (5.0-8.0) Ur Specific Horton (1.001-1.035) Urine Protein (Negative) Urine Glucose (UA) (Negative) Urine Ketones (Negative) Urine Blood (Negative) Urine Nitrite (Negative) Urine Bilirubin (Negative) Urine Urobilinogen (<2.0) mg/dL Ur Leukocyte Esterase (Negative) Urine RBC (0-5) /hpf Urine WBC (0-5) /hpf Ur Squamous Epith Cells (0-4) /hpf Urine Bacteria (None) /hpf Urine Mucus (None) /hpf Urine HCG, Qual Stool Occult Blood (Negative) Blood Type B Positive Blood Type Confirm Blood Type Recheck No Previous Record Bld Type Recheck Status CABO Indicated Antibody Screen NEGATIVE Spec Expiration Date 06/03/2024 - 232705/31/24 05/31/24 05/31/24 Range/Units 14:34 14:34 14:34 WBC (3.8-10.6) k/uL RBC (4.30-5.90) m/uL Hgb (13.0-17.5) gm/dL Hct (39.0-53.0) % MCV (80.0-100.0) fL MCH (25.0-35.0) pg MCHC (31.0-37.0) g/dL RDW (11.5-15.5) % Plt Count (150-450) k/uL MPV Neutrophils % % Lymphocytes % % Monocytes % % Eosinophils % % Basophils % % Neutrophils # (1.3-7.7) k/uL Lymphocytes # (1.0-4.8) k/uL Monocytes # (0-1.0) k/uL Eosinophils # (0-0.7) k/uL Basophils # (0-0.2) k/uL PT 10.5 (10.0-12.5) sec INR 0.9 (<1.2) APTT 26.1 (22.0-30.0) sec Sodium 137 (137-145) mmol/L Potassium 4.2 (3.5-5.1) mmol/L Chloride 98 (98-107) mmol/L Carbon Dioxide 28 (22-30) mmol/L Anion Gap 11 mmol/L BUN 9 (9-20) mg/dL Creatinine 0.88 (0.66-1.25) mg/dL Est GFR (CKD-EPI)AfAm >90 (>60 ml/min/1.73 sqM) Est GFR (CKD-EPI)NonAf >90 (>60 ml/min/1.73 sqM) Glucose 92 (74-99) mg/dL Plasma Lactic Acid Gary 1.4 (0.7-2.0) mmol/L Calcium 9.5 (8.4-10.2) mg/dL Total Bilirubin 0.6 (0.2-1.3) mg/dL AST 31 (17-59) U/L ALT 31 (4-49) U/L Alkaline Phosphatase 66 (38-126) U/L Total Protein 7.6 (6.3-8.2) g/dL Albumin 4.8 (3.5-5.0) g/dL Amylase 41 (30-110) U/L Lipase 83 (23-300) U/L Urine Color Urine Appearance (Clear) Urine pH (5.0-8.0) Ur Specific Horton (1.001-1.035) Urine Protein (Negative) Urine Glucose (UA) (Negative) Urine Ketones (Negative) Urine Blood (Negative) Urine Nitrite (Negative) Urine Bilirubin (Negative) Urine Urobilinogen (<2.0) mg/dL Ur Leukocyte Esterase (Negative) Urine RBC (0-5) /hpf Urine WBC (0-5) /hpf Ur Squamous Epith Cells (0-4) /hpf Urine Bacteria (None) /hpf Urine Mucus (None) /hpf Urine HCG, Qual Stool Occult Blood (Negative) Blood Type Blood Type Confirm Blood Type Recheck Bld Type Recheck Status Antibody Screen Spec Expiration Date 05/31/24 05/31/24 05/31/24 Range/Units 14:40 14:54 14:56 WBC (3.8-10.6) k/uL RBC (4.30-5.90) m/uL Hgb (13.0-17.5) gm/dL Hct (39.0-53.0) % MCV (80.0-100.0) fL MCH (25.0-35.0) pg MCHC (31.0-37.0) g/dL RDW (11.5-15.5) % Plt Count (150-450) k/uL MPV Neutrophils % % Lymphocytes % % Monocytes % % Eosinophils % % Basophils % % Neutrophils # (1.3-7.7) k/uL Lymphocytes # (1.0-4.8) k/uL Monocytes # (0-1.0) k/uL Eosinophils # (0-0.7) k/uL Basophils # (0-0.2) k/uL PT (10.0-12.5) sec INR (<1.2) APTT (22.0-30.0) sec Sodium (137-145) mmol/L Potassium (3.5-5.1) mmol/L Chloride (98-107) mmol/L Carbon Dioxide (22-30) mmol/L Anion Gap mmol/L BUN (9-20) mg/dL Creatinine (0.66-1.25) mg/dL Est GFR (CKD-EPI)AfAm (>60 ml/min/1.73 sqM) Est GFR (CKD-EPI)NonAf (>60 ml/min/1.73 sqM) Glucose (74-99) mg/dL Plasma Lactic Acid Gary (0.7-2.0) mmol/L Calcium (8.4-10.2) mg/dL Total Bilirubin (0.2-1.3) mg/dL AST (17-59) U/L ALT (4-49) U/L Alkaline Phosphatase (38-126) U/L Total Protein (6.3-8.2) g/dL Albumin (3.5-5.0) g/dL Amylase (30-110) U/L Lipase (23-300) U/L Urine Color Light Yellow Urine Appearance Cloudy (Clear) Urine pH 6.0 (5.0-8.0) Ur Specific Horton 1.017 (1.001-1.035) Urine Protein Negative (Negative) Urine Glucose (UA) Negative (Negative) Urine Ketones Negative (Negative) Urine Blood Negative (Negative) Urine Nitrite Negative (Negative) Urine Bilirubin Negative (Negative) Urine Urobilinogen <2.0 (<2.0) mg/dL Ur Leukocyte Esterase Moderate H (Negative) Urine RBC 8 H (0-5) /hpf Urine WBC 9 H (0-5) /hpf Ur Squamous Epith Cells 1 (0-4) /hpf Urine Bacteria Rare H (None) /hpf Urine Mucus Rare H (None) /hpf Urine HCG, Qual Stool Occult Blood NEGATIVE (Negative) Blood Type Blood Type Confirm B Positive Blood Type Recheck Bld Type Recheck Status Antibody Screen Spec Expiration Date 05/31/24 Range/Units 15:53 WBC (3.8-10.6) k/uL RBC (4.30-5.90) m/uL Hgb (13.0-17.5) gm/dL Hct (39.0-53.0) % MCV (80.0-100.0) fL MCH (25.0-35.0) pg MCHC (31.0-37.0) g/dL RDW (11.5-15.5) % Plt Count (150-450) k/uL MPV Neutrophils % % Lymphocytes % % Monocytes % % Eosinophils % % Basophils % % Neutrophils # (1.3-7.7) k/uL Lymphocytes # (1.0-4.8) k/uL Monocytes # (0-1.0) k/uL Eosinophils # (0-0.7) k/uL Basophils # (0-0.2) k/uL PT (10.0-12.5) sec INR (<1.2) APTT (22.0-30.0) sec Sodium (137-145) mmol/L Potassium (3.5-5.1) mmol/L Chloride (98-107) mmol/L Carbon Dioxide (22-30) mmol/L Anion Gap mmol/L BUN (9-20) mg/dL Creatinine (0.66-1.25) mg/dL Est GFR (CKD-EPI)AfAm (>60 ml/min/1.73 sqM) Est GFR (CKD-EPI)NonAf (>60 ml/min/1.73 sqM) Glucose (74-99) mg/dL Plasma Lactic Acid Gary (0.7-2.0) mmol/L Calcium (8.4-10.2) mg/dL Total Bilirubin (0.2-1.3) mg/dL AST (17-59) U/L ALT (4-49) U/L Alkaline Phosphatase (38-126) U/L Total Protein (6.3-8.2) g/dL Albumin (3.5-5.0) g/dL Amylase (30-110) U/L Lipase (23-300) U/L Urine Color Urine Appearance (Clear) Urine pH (5.0-8.0) Ur Specific Horton (1.001-1.035) Urine Protein (Negative) Urine Glucose (UA) (Negative) Urine Ketones (Negative) Urine Blood (Negative) Urine Nitrite (Negative) Urine Bilirubin (Negative) Urine Urobilinogen (<2.0) mg/dL Ur Leukocyte Esterase (Negative) Urine RBC (0-5) /hpf Urine WBC (0-5) /hpf Ur Squamous Epith Cells (0-4) /hpf Urine Bacteria (None) /hpf Urine Mucus (None) /hpf Urine HCG, Qual Not Detected Stool Occult Blood (Negative) Blood Type Blood Type Confirm Blood Type Recheck Bld Type Recheck Status Antibody Screen Spec Expiration Date Disposition Clinical Impression: Abdominal pain Disposition: HOME SELF-CARE Condition: Stable Instructions (If sedation given, give patient instructions): Abdominal Pain (ED), Gastrointestinal Bleeding (ED) Additional Instructions: Follow-up with Dr. Sepulveda as scheduled. I also recommend for close follow-up with PCP. Return to the ER for any new or worsening concerns. Is patient prescribed a controlled substance at d/c from ED?: No Referrals: Miller Flores MD [Primary Care Provider] - 1-2 days Time of Disposition: 17:43
[2024-05-31 14:51] LABS: Basophils # (A) 0.1 k/uL (0-0.2); Basophils % (A) 0 %; Eosinophils # (A) 0.3 k/uL (0-0.7); Eosinophils % (A) 3 %; HCT 49.8 % (39.0-53.0); HGB 16.8 gm/dL (13.0-17.5); Lymphocytes # (A) 2.3 k/uL (1.0-4.8); Lymphocytes % (A) 20 %; MCH 28.9 pg (25.0-35.0); MCHC 33.7 g/dL (31.0-37.0); MCV 85.8 fL (80.0-100.0); Mean Platelet Volume 7.5; Monocytes # (A) 0.4 k/uL (0-1.0); Monocytes % (A) 4 %; Neutrophils # (A) 8.3 k/uL (1.3-7.7); Neutrophils % (A) 72 %; Platelet Count 345 k/uL (150-450); RBC 5.81 m/uL (4.30-5.90); RDW 13.2 % (11.5-15.5); WBC 11.6 k/uL (3.8-10.6)
[2024-05-31] MEDS: SODIUM CHLORIDE 0.9% 500 ML 500 ML IV ONE (15:02)
[2024-05-31 15:03] LABS: ALT 31 U/L (4-49); AST 31 U/L (17-59); African American GFR (CKD) >90 (>60 ml/min/1.73 sqM); Albumin 4.8 g/dL (3.5-5.0); Alkaline Phosphatase 66 U/L (38-126); Amylase 41 U/L (30-110); Anion Gap 11 mmol/L; Blood Urea Nitrogen 9 mg/dL (9-20); Calcium 9.5 mg/dL (8.4-10.2); Carbon Dioxide 28 mmol/L (22-30); Chloride 98 mmol/L (98-107); Glucose 92 mg/dL (74-99); Lipase 83 U/L (23-300); Non-African American GFR(CKD) >90 (>60 ml/min/1.73 sqM); Potassium 4.2 mmol/L (3.5-5.1); Sodium 137 mmol/L (137-145); Total Bilirubin 0.6 mg/dL (0.2-1.3); Total Protein 7.6 g/dL (6.3-8.2)
[2024-05-31] MEDS: PANTOPRAZOLE 40 MG/10 ML VIAL IVP STA (15:04)
[2024-05-31] MEDS: ACETAMINOPHEN TAB 325 MG TAB PO STA (15:05)
[2024-05-31 15:11] LABS: INR 0.9 (<1.2); Partial Thromboplastin Time 26.1 sec (22.0-30.0); Prothrombin Time 10.5 sec (10.0-12.5)
[2024-05-31 15:15] LABS: Appearance,Urine Cloudy (Clear); Bacteria,Urine Rare /hpf; Bilirubin,Urine Negative (Negative); Blood,Urine Negative (Negative); Color,Urine Light Yellow; Glucose,Urine (UA) Negative (Negative); Ketones,Urine Negative (Negative); Leukocyte Esterase,Urine Moderate (Negative); Mucus,Urine Rare /hpf; Nitrite,Urine Negative (Negative); Protein,Urine Negative (Negative); RBC,Urine 8 /hpf (0-5); Specific Gravity,Urine 1.017 (1.001-1.035); Squamous Epithelial Cell,Urine 1 /hpf (0-4); Urobilinogen,Urine <2.0 mg/dL (<2.0); WBC,Urine 9 /hpf (0-5)
[2024-05-31] MEDS: diphenhydrAMINE 50 MG/ML 1 ML VIAL IVP STA (16:22)
[2024-05-31] MEDS: methylPREDNISolone SOD SUCCI 125 MG/2 ML VIAL IV STA (16:23)
[2024-05-31] MEDS: FAMOTIDINE 20 MG/2 ML VIAL IV STA (16:23)
--- NOTE | 2024-05-31 17:33 | CT ---
EXAMINATION TYPE: CT angio abdomen pelvis DATE OF EXAM: 05/31/2024 5:20 PM COMPARISON: None available. CLINICAL INDICATION: Male, 33 years old with history of rectal bleeding/clots left sided abd cramping ; PHH, Chronic rectal bleeding, left side abdominal cramping. TECHNIQUE: Multiple thin slice sub-millimeter images were obtained after administration of contrast. 3-D reconstructed images and maximum intensity projection images were obtained. CT angio abdomen pel vis CT Contrast: Contrast used:100 mL of Isovue 370 without and with IV Contrast, Oral contrast used: without Oral Contrast None CT DLP: 3816 mGycm, Automated exposure control for dose reduction was used. FINDINGS: CTA Abdomen and pelvis: The abdominal aorta does not demonstrate aneurysmal dilatation. Atherosclero tic plaquing is identified within the abdominal aorta. The origins of the superior mesenteric artery , renal arteries, inferior mesenteric artery, and celiac axis are patent. The iliac vessels are norm al in morphology Left: The common femoral and superficial femoral arteries are patent. The popliteal artery is patent. Anterior and posterior tibial arteries as well as the peroneal artery are patent. Anterior and poste rior tibial arteries cross the ankle. LOWER CHEST: No evidence of focal consolidation, pneumothorax or pleural effusion. LIVER: Unremarkable GALLBLADDER AND BILE DUCTS: Unremarkable. PANCREAS: Unremarkable. SPLEEN: Unremarkable. ADRENAL GLANDS: Unremarkable. KIDNEYS AND URETERS: No evidence of hydronephrosis or renal calculus. The ureters are unremarkable. PELVIS BLADDER: Unremarkable REPRODUCTIVE: Unremarkable. ABDOMEN & PELVIS STOMACH AND BOWEL: Evaluation of the gastrointestinal tract demonstrates no evidence of high density hemorrhage on arterial phase or pooling of blood on delayed phases.No abnormal small or large bowel w all thickening or mucosal hyperenhancement. No evidence of mesenteric inflammation. No evidence of nanette wel obstruction. PERITONEUM: No evidence of pneumoperitoneum or free fluid. VASCULATURE: No evidence of aortic aneurysm. MUSCULOSKELETAL: No acute osseous abnormalities LYMPH NODES: No gross evidence for lymphadenopathy. SOFT TISSUE/ABDOMINAL WALL: Unremarkable IMPRESSION: No acute abnormality in the abdomen/pelvis or CT findings to explain reported symptoms. No evidence o f active upper or lower gastrointestinal bleeding. [facility], , 05/31/2024 5:31 PM
[2024-05-31 18:15] VITALS: BP 146/98; PULSE 75; RESP 16; TEMP 98.3
== END 2024-05-31 18:15 | disposition home or self-care (01) ==
LOC: EC 13:09
DX: R10.9 Unspecified abdominal pain (principal); Z91.041 Radiographic dye allergy status
CPT/HCPCS: 36415; 86900; 86901; 80053; 82150; 83605; 83690; 85025; 85610; 85730; 86850; 82272; 81001; 81025; 74174; 99285; 96374; 96375 ×3; J1200; J3490; Q9967; J2919; J2470

== ENCOUNTER 2024-06-28 13:34 | Emergency (ER) | payer MEDICAID ==
[2024-06-28] MEDS: SODIUM CHLORIDE 0.9% 1,000 ML IV ONE (14:12)
[2024-06-28] MEDS: MAG HYDROX/AL HYDROX/SIMETH 30 ML CUP PO PRN (14:13)
[2024-06-28] MEDS: METOCLOPRAMIDE 5 MG/ML 2 ML VIAL IVP STA (14:13)
[2024-06-28] MEDS: diphenhydrAMINE 50 MG/ML 1 ML VIAL IVP STA (14:14)
[2024-06-28] MEDS: FAMOTIDINE 20 MG/2 ML VIAL IV STA (14:17)
[2024-06-28 14:21] VITALS: RESP 18
[2024-06-28 14:33] LABS: Basophils # (A) 0.05 10*3/uL (0.00-0.10); Basophils % (A) 0.4 %; Eosinophils # (A) 0.26 10*3/uL (0.04-0.35); Eosinophils % (A) 2.2 %; HCT 48.9 % (39.6-50.0); HGB 17.1 g/dL (13.0-17.0); Lymphocytes # (A) 2.35 10*3/uL (0.90-5.00); Lymphocytes % (A) 19.7 %; MCH 29.8 pg (27.0-32.0); MCV 85.2 fL (80.0-97.0); Mean Platelet Volume 10.1 fL (9.5-12.2); Monocytes # (A) 0.77 10*3/uL (0.20-1.00); Monocytes % (A) 6.4 %; Neutrophils # (A) 8.46 10*3/uL (1.80-7.70); Neutrophils % (A) 70.8 %; Platelet Count 308 10*3/uL (140-440); RBC 5.74 10*6/uL (4.40-5.60); RDW 13.2 % (11.5-14.5); WBC 11.95 10*3/uL (4.50-10.00)
--- NOTE | 2024-06-28 14:47 | ED ---
Abdominal Pain HPI - General Chief Complaint: Abdominal Pain Stated Complaint: abd pain Time Seen by Provider: 06/28/24 13:37 Source: patient, RN notes reviewed Mode of arrival: ambulatory Limitations: no limitations - History of Present Illness Initial Comments: 33-year-old male presents emergency department complaint of abdominal pain. Patient states has been having worsening left upper quadrant abdominal pain. Patient states he was here recently again showed no acute process. Patient had a prior cholecystectomy. Patient states he is scheduled for an EGD and colon will be. Patient denies any melanotic stools no dysuria no hematuria - Related Data Home Medications Medication Instructions Recorded Confirmed Levothyroxine Sodium [Synthroid] 75 mcg PO DAILY 02/14/14 02/05/15 Testosterone Cypionate 100 mg IM DIRECTED 02/14/14 02/05/15 [Depo-Testosterone] Atorvastatin [Lipitor] 1 tab PO DAILY 02/05/15 02/05/15 Omeprazole 1 tab PO DAILY 02/05/15 02/05/15 Previous Rx's Medication Instructions Recorded Cyclobenzaprine [Flexeril] 10 mg PO TID PRN #15 tab 02/14/14 Famotidine 40 mg PO DAILY 7 Days #7 tab 06/21/21 diphenhydrAMINE HCL [Benadryl] 25 mg PO Q6HR PRN #28 tab 06/21/21 Amoxic-Pot Clav 875-125Mg 1 tab PO Q12HR #20 tab 04/21/23 [Augmentin 875-125] Fluconazole [Diflucan] 150 mg PO ONCE #5 tab 04/21/23 predniSONE 50 mg PO DAILY #5 tab 04/21/23 Ondansetron Odt [Zofran Odt] 4 mg PO Q8HR PRN #14 tab 06/03/23 Oseltamivir [Tamiflu] 75 mg PO Q12HR #10 cap 06/12/23 predniSONE [Deltasone] 20 mg PO TID #15 tab 06/12/23 Diphenox-Atrop 2.5-0.025 mg 1 tab PO QID 3 Days #12 tablet 04/12/24 [Lomotil] Pantoprazole Sodium [Protonix] 40 mg PO DAILY #15 tab 06/03/24 Metoclopramide [Reglan] 10 mg PO TID PRN #15 tab 06/28/24 Sucralfate [Carafate] 1 gm PO BID #14 tablet 06/28/24 Allergies Allergy/AdvReac Type Severity Reaction Status Date / Time Iodine and Iodide Containing Allergy Rash/Hives Verified 05/31/24 13:23 Produc Review of Systems ROS Statement: Those systems with pertinent positive or pertinent negative responses have been documented in the HPI. ROS Other: All systems not noted in ROS Statement are negative. Past Medical History Past Medical History: Cancer, Hyperlipidemia, Thyroid Disorder Additional Past Medical History / Comment(s): thyroid cancer, salivary gland cancer History of Any Multi-Drug Resistant Organisms: None Reported Past Surgical History: Adenoidectomy, Ear Surgery, Tonsillectomy Additional Past Surgical History / Comment(s): thyroidectomy Past Psychological History: No Psychological Hx Reported, ADD/ADHD Smoking Status: Never smoker Past Alcohol Use History: None Reported, Rare Past Drug Use History: Marijuana General Exam Limitations: no limitations General appearance: alert, in no apparent distress Head exam: Present: atraumatic, normocephalic, normal inspection Eye exam: Present: normal appearance, PERRL, EOMI. Absent: scleral icterus, conjunctival injection, periorbital swelling ENT exam: Present: normal exam, normal oropharynx, mucous membranes moist Neck exam: Present: normal inspection, full ROM. Absent: tenderness, meningismus, lymphadenopathy Respiratory exam: Present: normal lung sounds bilaterally. Absent: respiratory distress, wheezes, rales, rhonchi, stridor Cardiovascular Exam: Present: regular rate, normal rhythm, normal heart sounds. Absent: systolic murmur, diastolic murmur, rubs, gallop, clicks GI/Abdominal exam: Present: soft, tenderness, normal bowel sounds. Absent: distended, guarding, rebound, rigid Back exam: Absent: CVA tenderness (R), CVA tenderness (L) Neurological exam: Present: alert Course Vital Signs 06/28/24 13:50 Temperature 98.4 F Pulse Rate 70 Respiratory 18 Rate Blood Pressure 136/92 O2 Sat by Pulse 99 Oximetry Medical Decision Making - Medical Decision Making Was pt. sent in by a medical professional or institution (, PA, SAFETY AND SKILL BASED PAY MANAGER, urgent care, hospital, or custodial...) When possible be specific @ -No Did you speak to anyone other than the patient for history (EMS, parent, family, police, friend...)? What history was obtained from this source @ -No Did you review nursing and triage notes (agree or disagree)? Why? @ -I reviewed and agree with nursing and triage notes Were old charts reviewed (outside hosp., previous admission, EMS record, old EKG, old radiological studies, urgent care reports/EKG's, custodial records)? Report findings @ -Reviewed recent CT abdomen pelvis showing no acute intra-abdominal process Differential Diagnosis (chest pain, altered mental status, abdominal pain women, abdominal pain men, vaginal bleeding, weakness, fever, dyspnea, syncope, headache, dizziness, GI bleed, back pain, seizure, CVA, palpatations, mental h ealth, musculoskeletal)? @ -Differential Abdominal Pain Men: Appendicitis, cholecystitis, diverticulosis, ischemic bowel, pancreatitis, hepatitis, UTI, gastroenteritis, AAA, incarcerated hernia, bowel obstruction, constipation, inflammatory bowel, hepatitis, peptic ulcer disease, splenic infarction, perforated viscus, testicular torsion, this is not meant to be an all-inclusive list EKG interpreted by me (3pts min.). @ -9 X-rays interpreted by me (1pt min.). @ -None done CT interpreted by me (1pt min.). @ -None done U/S interpreted by me (1pt. min.). @ -None done What testing was considered but not performed or refused? (CT, X-rays, U/S, labs)? Why? @ -None What meds were considered but not given or refused? Why? @ -None Did you discuss the management of the patient with other professionals (professionals i.e. , PA, SAFETY AND SKILL BASED PAY MANAGER, lab, RT, psych nurse, social worker school, real estate leasing agent, teacher, landing signal officer, keycase assembler)? Give summary @ -No Was smoking cessation discussed for >3mins.? @ -No Was critical care preformed (if so, how long)? @ -No Were there social determinants of health that impacted care today? How? (Homelessness, low income, unemployed, alcoholism, drug addiction, transportation, low edu. Level, literacy, decrease access to med. care, care home, rehab)? @ -No Was there de-escalation of care discussed even if they declined (Discuss DNR or withdrawal of care, Hospice)? DNR status @ -No What co-morbidities impacted this encounter? (DM, HTN, Smoking, COPD, CAD, Cancer, CVA, ARF, Chemo, Hep., AIDS, mental health diagnosis, sleep apnea, morbid obesity)? @ -None Was patient admitted / discharged? Hospital course, mention meds given and route, prescriptions, significant lab abnormalities, going to OR and other pertinent info. @ -Discharge patient feels great improved this time. Patient advised take [id number] MiraLAX as directed. Patient does have follow-up ointment with Dr. Winston for EGD and colonoscopy. Patient. Undiagnosed new problem with uncertain prognosis? @ -No Drug Therapy requiring intensive monitoring for toxicity (Heparin, Nitro, Insulin, Cardizem)? @ -No Were any procedures done? @ -No Diagnosis/symptom? @Abdominal pain Acute, or Chronic, or Acute on Chronic? @ -Acute Uncomplicated (without systemic symptoms) or Complicated (systemic symptoms)? @ -Uncomplicated Side effects of treatment? @ -No Exacerbation, Progression, or Severe Exacerbation? @ -No Poses a threat to life or bodily function? How? (Chest pain, USA, NV, pneumonia, PE, COPD, DKA, ARF, appy, cholecystitis, CVA, Diverticulitis, Homicidal, Suicidal, threat to staff... and all critical care pts) @ -No - Lab Data Result diagrams: 06/28/24 14:20 06/28/24 14:58 Lab Results 06/28/24 06/28/24 Range/Units 14:20 14:58 WBC 11.95 H (4.50-10.00) 10*3/uL RBC 5.74 H (4.40-5.60) 10*6/uL Hgb 17.1 H (13.0-17.0) g/dL Hct 48.9 (39.6-50.0) % MCV 85.2 (80.0-97.0) fL MCH 29.8 (27.0-32.0) pg MCHC 35.0 (32.0-37.0) g/dL Plt Count 308 (140-440) 10*3/uL MPV 10.1 (9.5-12.2) fL Immature Gran % (Auto) 0.5 % Neutrophils % 70.8 % Lymphocytes % 19.7 % Monocytes % 6.4 % Eosinophils % 2.2 % Basophils % 0.4 % Immature Gran # 0.06 H (0.00-0.04) 10*3/uL Neutrophils # 8.46 H (1.80-7.70) 10*3/uL Lymphocytes # 2.35 (0.90-5.00) 10*3/uL Monocytes # 0.77 (0.20-1.00) 10*3/uL Eosinophils # 0.26 (0.04-0.35) 10*3/uL Basophils # 0.05 (0.00-0.10) 10*3/uL Sodium 138 (137-145) mmol/L Potassium 3.9 (3.5-5.1) mmol/L Chloride 103 (98-107) mmol/L Carbon Dioxide 27 (22-30) mmol/L Anion Gap 8 mmol/L BUN 9 (9-20) mg/dL Creatinine 0.64 L (0.66-1.25) mg/dL Est GFR (CKD-EPI)AfAm >90 (>60 ml/min/1.73 sqM) Est GFR (CKD-EPI)NonAf >90 (>60 ml/min/1.73 sqM) Glucose 85 (74-99) mg/dL Calcium 8.9 (8.4-10.2) mg/dL Total Bilirubin 0.5 (0.2-1.3) mg/dL AST 25 (17-59) U/L ALT 32 (4-49) U/L Alkaline Phosphatase 63 (38-126) U/L Total Protein 6.6 (6.3-8.2) g/dL Albumin 4.1 (3.5-5.0) g/dL Amylase 34 (30-110) U/L Lipase 90 (23-300) U/L Disposition Clinical Impression: Abdominal pain Disposition: HOME SELF-CARE Condition: Stable Instructions (If sedation given, give patient instructions): Abdominal Pain (ED) Additional Instructions: Please return to the Emergency Department if symptoms worsen or any other concerns. Prescriptions: Sucralfate [Carafate] 1 gm PO BID #14 tablet Metoclopramide [Reglan] 10 mg PO TID PRN #15 tab PRN Reason: Nausea Is patient prescribed a controlled substance at d/c from ED?: No Referrals: Miller Flores MD [Primary Care Provider] - 1-2 days Time of Disposition: 15:44
[2024-06-28 15:29] LABS: ALT 32 U/L (4-49); AST 25 U/L (17-59); African American GFR (CKD) >90 (>60 ml/min/1.73 sqM); Albumin 4.1 g/dL (3.5-5.0); Alkaline Phosphatase 63 U/L (38-126); Amylase 34 U/L (30-110); Anion Gap 8 mmol/L; Blood Urea Nitrogen 9 mg/dL (9-20); Calcium 8.9 mg/dL (8.4-10.2); Carbon Dioxide 27 mmol/L (22-30); Chloride 103 mmol/L (98-107); Glucose 85 mg/dL (74-99); Lipase 90 U/L (23-300); Non-African American GFR(CKD) >90 (>60 ml/min/1.73 sqM); Potassium 3.9 mmol/L (3.5-5.1); Sodium 138 mmol/L (137-145); Total Bilirubin 0.5 mg/dL (0.2-1.3); Total Protein 6.6 g/dL (6.3-8.2)
[2024-06-28] MEDS: SUCRALFATE 1 GM TAB PO STA (15:54)
[2024-06-28 15:59] VITALS: BP 133/62; PULSE 66; TEMP 98.2
== END 2024-06-28 15:59 | disposition home or self-care (01) ==
LOC: EC 13:34
DX: R10.12 Left upper quadrant pain (principal); Z91.041 Radiographic dye allergy status
CPT/HCPCS: 36415; 80053; 82150; 83690; 85025; 99284; 96374; 96375 ×2; 96361 ×2; J1200; J2765; J1308

== ENCOUNTER 2024-07-13 08:00 | Day surgery (SDC) | payer MEDICAID ==
[2024-07-12 09:15] VITALS: BMI 56.5
--- NOTE | 2024-07-13 07:45 | P.GSHP ---
History of Present Illness H&P Date: 07/13/24 CHIEF COMPLAINT: GERD and change in bowel habits HISTORY OF PRESENT ILLNESS: The patient is a 33-year-old male who presents with gastroesophageal reflux disease with dysphagia and change in bowel habits. Upper and lower endoscopy were offered for further evaluation and management. PAST MEDICAL HISTORY: Please see list. PAST SURGICAL HISTORY: Please see list. MEDICATIONS: Please see list. ALLERGIES: Please see list. SOCIAL HISTORY: No illicit drug use FAMILY HISTORY: No reports of Crohn disease or ulcerative colitis. REVIEW OF ORGAN SYSTEMS: CONSTITUTIONAL: No reports of fevers or chills. PHYSICAL EXAM: VITAL SIGNS: Stable GENERAL: Well-developed pleasant in no acute distress. HEENT: No scleral icterus. Extraocular movements grossly intact. Moist buccal mucosa. NECK: Supple without lymphadenopathy. CHEST: Unlabored respirations. Equal bilateral excursions. CARDIOVASCULAR: Regular rate and rhythm. Distal 2+ pulses. ABDOMEN: Soft, nondistended. MUSCULOSKELETAL: No clubbing, cyanosis, or edema. ASSESSMENT: 1. Gastroesophageal reflux disease with dysphagia 2. Change in bowel habits PLAN: 1. Recommend proceeding with an upper and lower endoscopy Past Medical History Past Medical History: Cancer, Hyperlipidemia, Thyroid Disorder Additional Past Medical History / Comment(s): thyroid cancer, salivary gland cancer, OCCASIONAL RECTAL BLEEDING, ABD PAIN,. PT IDENTIFY'S A MALE, BUT WAS BORN FEMALE AND STILL HAS FEMALE ORGANS History of Any Multi-Drug Resistant Organisms: None Reported Past Surgical History: Adenoidectomy, Ear Surgery, Tonsillectomy Additional Past Surgical History / Comment(s): thyroidectomy, SALAVARY GLAND REMOVED Past Anesthesia/Blood Transfusion Reactions: Postoperative Nausea & Vomiting (PONV) Smoking Status: Never smoker - Past Family History Mother Family Medical History: Cancer, Diabetes Mellitus Sister(s) Family Medical History: Cancer Medications and Allergies Home Medications Medication Instructions Recorded Confirmed Type Testosterone Cypionate 160 mg IM Q14D 02/14/14 07/12/24 History [Depo-Testosterone] Ondansetron Odt [Zofran Odt] 4 mg PO Q8HR PRN #14 tab 06/03/23 07/12/24 Rx Albuterol Inhaler [Ventolin Hfa 2 puff INHALATION RT-QID PRN 06/28/24 07/12/24 History Inhaler] Budesonide/Formoterol Fumarate 2 puff INHALATION RT-BID 06/28/24 07/12/24 History [Symbicort 160-4.5 Mcg Inhaler] EPINEPHrine (Auto Inject) [Epipen] 0.3 mg IM ONCE PRN 06/28/24 07/12/24 History Famotidine 40 mg PO HS 06/28/24 07/12/24 History Hydrocortisone Cream 1 applic TOPICAL QID PRN 06/28/24 07/12/24 History [Hydrocortisone 2.5% Cream] Levothyroxine Sodium [Synthroid] 25 mcg PO DAILY 06/28/24 07/12/24 History Levothyroxine Sodium [Synthroid] 200 mcg PO DAILY 06/28/24 07/12/24 History Lisdexamfetamine Dimesylate 30 mg PO DAILY 06/28/24 07/12/24 History [Vyvanse] Metoclopramide [Reglan] 10 mg PO TID PRN #15 tab 06/28/24 07/12/24 Rx Pantoprazole Sodium [Protonix] 40 mg PO HS 06/28/24 07/12/24 History Sucralfate [Carafate] 1 gm PO BID #14 tablet 06/28/24 07/12/24 Rx Allergies Allergy/AdvReac Type Severity Reaction Status Date / Time Iodine and Iodide Containing Allergy Rash/Hives Verified 07/12/24 08:47 Produc
[2024-07-13 08:41] VITALS: TEMP 97.1
[2024-07-13] MEDS: IV FLUID CONTINUATION 1,000 ML IV ONE (08:45)
[2024-07-13] MEDS: LACTATED RINGERS 1,000 ML IV SCH (08:50)
[2024-07-13] MEDS ORDERED: LIDOCAINE 2% (PF) 20 MG/ML 5 ML VIAL ONE (08:55)
[2024-07-13] MEDS ORDERED: ONDANSETRON 4 MG/2 ML VIAL ONE (08:55)
[2024-07-13] MEDS ORDERED: PROPOFOL 10 MG/ML 20 ML VIAL IV ONE (08:55)
--- NOTE | 2024-07-13 09:34 | P.PCN ---
Date of Procedure: 07/13/24 Description of Procedure: PREOPERATIVE DIAGNOSIS: Gastrointestinal bleeding Family history of colon cancer POSTOPERATIVE DIAGNOSIS: Gastroesophageal reflux disease with erosive esophagitis OPERATION: Esophagogastroduodenoscopy with cold forceps biopsies along esophagus, antrum and duodenum SURGEON: Elif Sepulveda MD ANESTHESIA: MAC. INDICATIONS: The patient is a 33-year-old transgender male who presents with gastrointestinal bleeding. Benefits and risks of the procedure were described. Informed consent was obtained. DESCRIPTION: The patient was brought into the endoscopy suite and laid in the left lateral decubitus position. An Olympus gastroscope was passed along the posterior oropharynx down to the distal esophagus where the squamocolumnar junction was encountered at 37 cm from the incisors. The stomach was entered and bile reflux was found. Additional findings are listed below. Biopsies with cold forceps were obtained of the antrum. The first through third portion of the duodenum was examined. Retroflexion of the scope confirmed Hill grade 2 lower esophageal valve. The squamocolumnar junction demonstrated LA grade B erosive esophagitis. The stomach was desufflated. The patient tolerated the procedure well. FINDINGS: Squamocolumnar junction 37 cm from the incisors. Diaphragmatic hiatus at 37 cm. Hill grade 2 lower esophageal valve. LA grade B erosive esophagitis. Biopsies obtained. Biopsies obtained of the duodenum. Chronic gastritis with biopsies obtained. RECOMMENDATIONS: Upper endoscopy as needed
--- NOTE | 2024-07-13 09:41 | P.PCN ---
Date of Procedure: 07/13/24 Description of Procedure: PREOPERATIVE DIAGNOSIS: Gastrointestinal bleeding Family history esophageal cancer POSTOPERATIVE DIAGNOSIS: Microscopic colitis OPERATION: Colonoscopy to the cecum, ileocecal valve and appendiceal orifice. Colonoscopy with random cold forceps biopsies for microscopic colitis SURGEON: Elif Sepulveda MD. ANESTHESIA: MAC. INDICATIONS: The patient is a 33-year-old transgender male who presents with gastrointestinal bleeding. Benefits and risks were described and informed consent was obtained. DESCRIPTION OF PROCEDURE: The patient had undergone Suprep. The patient had been brought into the operating room and laid in the left lateral decubitus position. After adequate intravenous sedation, the rectum was examined with 2% lidocaine jelly. No external hemorrhoids were encountered. The rectal tone was within normal limits. No lesions were palpated in the rectal vault. An Olympus colonoscope was advanced until the cecum, ileocecal valve and appendiceal orifice were clearly viewed. The prep was good. No scattered diverticulosis was encountered. No colonic polyps were found. Cold forceps biopsies randomly were obtained for microscopic colitis. Retroflexion of the scope demonstrated grade 1 internal hemorrhoids without active bleeding or inflammation. The colon was desufflated. The patient had tolerated the procedure well. Withdrawal time was over 6 minutes. FINDINGS: Aronchick preparation quality scale 2 (1-5) Internal hemorrhoids, grade 1 No external prolapsed hemorrhoids. No arteriovenous malformations. No adenomatous polyps. Cold forceps biopsies obtained for microscopic colitis RECOMMENDATIONS: Colonoscopy in 5 years2029 Plan - Discharge Summary Discharge Rx Participant: Yes New Discharge Prescriptions: Continue Testosterone Cypionate [Depo-Testosterone] 160 mg IM Q14D Sucralfate [Carafate] 1 gm PO BID #14 tablet Metoclopramide [Reglan] 10 mg PO TID PRN #15 tab PRN Reason: Nausea EPINEPHrine (Auto Inject) [Epipen] 0.3 mg IM ONCE PRN PRN Reason: Anaphylaxis Levothyroxine Sodium [Synthroid] 200 mcg PO DAILY Lisdexamfetamine Dimesylate [Vyvanse] 30 mg PO DAILY Famotidine 40 mg PO HS Hydrocortisone Cream [Hydrocortisone 2.5% Cream] 1 applic TOPICAL QID PRN PRN Reason: Pain Ondansetron Odt [Zofran ODT] 4 mg PO Q8HR PRN #14 tab PRN Reason: Nausea Albuterol Inhaler [Ventolin Hfa Inhaler] 2 puff INHALATION RT-QID PRN PRN Reason: Shortness Of Breath Budesonide/Formoterol Fumarate [Symbicort 160-4.5 Mcg Inhaler] 2 puff INHALATION RT-BID Levothyroxine Sodium [Synthroid] 25 mcg PO DAILY Pantoprazole Sodium [Protonix] 40 mg PO HS Discharge Medication List Testosterone Cypionate [Depo-Testosterone] 160 mg IM Q14D 02/14/14 [History] Ondansetron Odt [Zofran ODT] 4 mg PO Q8HR PRN #14 tab 06/03/23 [Rx] Albuterol Inhaler [Ventolin Hfa Inhaler] 2 puff INHALATION RT-QID PRN 06/28/24 [History] Budesonide/Formoterol Fumarate [Symbicort 160-4.5 Mcg Inhaler] 2 puff INHALATION RT-BID 06/28/24 [History] EPINEPHrine (Auto Inject) [Epipen] 0.3 mg IM ONCE PRN 06/28/24 [History] Famotidine 40 mg PO HS 06/28/24 [History] Hydrocortisone Cream [Hydrocortisone 2.5% Cream] 1 applic TOPICAL QID PRN 06/28/24 [History] Levothyroxine Sodium [Synthroid] 25 mcg PO DAILY 06/28/24 [History] Levothyroxine Sodium [Synthroid] 200 mcg PO DAILY 06/28/24 [History] Lisdexamfetamine Dimesylate [Vyvanse] 30 mg PO DAILY 06/28/24 [History] Metoclopramide [Reglan] 10 mg PO TID PRN #15 tab 06/28/24 [Rx] Pantoprazole Sodium [Protonix] 40 mg PO HS 06/28/24 [History] Sucralfate [Carafate] 1 gm PO BID #14 tablet 06/28/24 [Rx] Follow up Appointment(s)/Referral(s): Elif Sepulveda MD [STAFF PHYSICIAN] - 08/02/24 3:00 pm (Follow up at bariatric center) Patient Instructions/Handouts: Microscopic Colitis (DC) Activity/Diet/Wound Care/Special Instructions: Repeat colonoscopy 5 years, 2029 Discharge Disposition: HOME SELF-CARE
[2024-07-13 09:42] VITALS: RESP 15
--- NOTE | 2024-07-13 09:54 | P.PN ---
Progress Note - Text Progress Note Date: 07/13/24 Patient reports atypical chest pain with tachycardia. Twelve-lead EKG being obtained.
[2024-07-13 10:00] VITALS: BP 130/87; PULSE 65
== END 2024-07-13 10:26 | disposition home or self-care (01) ==
LOC: ORWHC2ENDO 08:00
PROVIDERS: ATTEND Surgery Plastic and Reconstructive Surgery
DX: Z12.11 Encounter for screening for malignant neoplasm of colon (principal); K64.1 Second degree hemorrhoids; K64.4 Residual hemorrhoidal skin tags; K29.50 Unspecified chronic gastritis without bleeding; K21.00 Gastro-esophageal reflux disease with esophagitis, without bleeding; E78.5 Hyperlipidemia, unspecified; G47.33 Obstructive sleep apnea (adult) (pediatric); E89.0 Postprocedural hypothyroidism; J45.909 Unspecified asthma, uncomplicated; F64.0 Transsexualism; R07.89 Other chest pain; R00.0 Tachycardia, unspecified; Z91.89 Other specified personal risk factors, not elsewhere classified; Z79.890 Hormone replacement therapy; Z79.51 Long term (current) use of inhaled steroids; Z79.899 Other long term (current) drug therapy; Z85.850 Personal history of malignant neoplasm of thyroid; Z85.818 Personal history of malignant neoplasm of other sites of lip, oral cavity, and pharynx; Z80.0 Family history of malignant neoplasm of digestive organs; Z91.041 Radiographic dye allergy status
CPT/HCPCS: 88305; 45380; 43239; J2405; J2704; J2003

== ENCOUNTER → 2024-07-13 | Outpatient (CLI) | payer MEDICAID ==
[2024-07-13 12:13] LABS: INR 0.9 (<1.2); Partial Thromboplastin Time 25.6 sec (22.0-30.0); Prothrombin Time 10.6 sec (10.0-12.5)
[2024-07-13 18:01] LABS: % Iron Saturation 16.31 (12.00-50.00); ALT 27 U/L (8-49); AST 21 U/L (13-35); Albumin/Globulin Ratio 1.82 Ratio (1.60-3.17); Alkaline Phosphatase 57 U/L (41-126); BUN/Creat Ratio 9.86 Ratio (12.00-20.00); Blood Urea Nitrogen 6.9 mg/dL (9.0-27.0); Calcium 9.2 mg/dL (8.7-10.3); Chloride 104 mmol/L (96-109); Chol/HDL Ratio 7.59 Ratio; Globulin 2.2 g/dL (1.6-3.3); Glucose 95 mg/dL (70-110); Iron 53 UG/DL (50-175); LDL Cholesterol,Calculated 137.8 mg/dL (0.0-131.0); Magnesium 2.4 mg/dL (1.5-2.4); Phosphorus 3.1 mg/dL (2.4-5.1); Potassium 4.4 mmol/L (3.5-5.5); Sodium 142 mmol/L (135-145); Total Bilirubin 0.3 mg/dL (0.3-1.2); Total Iron Binding Capacity 325 UG/DL (228-460); Total Protein 6.2 g/dL (6.2-8.2)
[2024-07-13 20:38] LABS: HCT 48.4 % (37.2-50.0); HGB 15.5 g/dL (12.0-17.0); MCH 28.4 pg (27.0-32.0); MCV 88.8 FL (80.0-97.0); Mean Platelet Volume 10.8 FL (9.5-12.2); NRBC Per 100 WBC 0 X 10*3/uL (0.00-0.01); Platelet Count 344 X 10*3/uL (140-440); RBC 5.45 X 10*6/uL (4.10-5.60); RDW 13.8 % (11.5-14.5); WBC 10.65 X 10*3/uL (4.50-10.00)
[2024-07-14 11:38] LABS: Zinc, Serum 78 ug/dL (60-130)
== END | disposition home or self-care (01) ==
LOC: LABWHC1 10:29
PROVIDERS: ATTEND Surgery Plastic and Reconstructive Surgery
DX: E55.9 Vitamin D deficiency, unspecified (principal); E89.1 Postprocedural hypoinsulinemia; E44.0 Moderate protein-calorie malnutrition; E66.01 Morbid (severe) obesity due to excess calories; D50.8 Other iron deficiency anemias; K74.1 Hepatic sclerosis; F17.200 Nicotine dependence, unspecified, uncomplicated; T56.894A Toxic effect of other metals, undetermined, initial encounter; R63.30 Feeding difficulties, unspecified; R82.5 Elevated urine levels of drugs, medicaments and biological substances
CPT/HCPCS: 36415; 80053; 80061; 80307; 82306; 82525; 82607; 82728; 82746; 83036; 83540; 83550; 83735; 83970; 84100; 84134; 84255; 84425; 84443; 84590; 84630; 85027; 85610; 85730

== ENCOUNTER → 2024-08-23 | Outpatient (CLI) | payer MEDICAID ==
[2024-08-23 16:20] VITALS: BP 133/86; PULSE 86; RESP 16; TEMP 98.3; BMI 55.1
--- NOTE | 2024-08-23 16:55 | P.HPBAR ---
Bariatric H&P - History & Physicial H&P Date: 08/23/24 History & Physicial: Visit/CC: Initial Visit Patient initial contact: Initial weight: 152.605 kg Initial weight in pounds: 336.44 Height: 5 ft 5.5 in Initial BMI: 55.1 Last weight: Current weight: 152.605 kg Current weight in pounds: 336.44 Current BMI: 55.1 Dike body weight (based on NIH guidelines): 63.18 kg Excess body weight loss: 0.0% The patient is a 34 year-old M who presents for Bariatric Assessment. Patient was cooking with butter 277 now 205. Stopped cooking with butter. Cramping belly. NO food journal. Food intolerance and allergy. EGD and colon was normal. Biopsies are normal. Weight of 336 pounds. Needs US and gallbladder. Lost 62 pounds since Halloween, eating less and cutting out pop. Seeing PCP monthly. Respiratory distress. Needs 3 months of medical supervised weight loss. Past Medical History Past Medical History: Cancer, Hyperlipidemia, Thyroid Disorder Additional Past Medical History / Comment(s): thyroid cancer, salivary gland cancer History of Any Multi-Drug Resistant Organisms: None Reported Past Surgical History: Adenoidectomy, Ear Surgery, Tonsillectomy Additional Past Surgical History / Comment(s): thyroidectomy Smoking Status: Never smoker Surgical - Exam Vital Signs Temp Pulse Resp BP 98.3 F 86 16 133/86 08/23/24 16:17 08/23/24 16:17 08/23/24 16:17 08/23/24 16:17 Bariatric Checklist Checklist: Plan: Checklist: EGD: 1. Hiatal hernia: 2. H. Pylori: HgbA1c: Vitamin D: Smoking: Never smoker Primary care physician referral: Dr. Flores Psychiatry clearance: Cardiology clearance: Sleep study: Diet journal: VTE risk score: VTE risk level: Rehab needs at discharge:
== END ==
LOC: BARWHC3 15:49
PROVIDERS: ATTEND Surgery Plastic and Reconstructive Surgery
DX: E66.01 Morbid (severe) obesity due to excess calories (principal); F12.90 Cannabis use, unspecified, uncomplicated; Z91.041 Radiographic dye allergy status; Z68.43 Body mass index [BMI] 50.0-59.9, adult
CPT/HCPCS: 99202

== ENCOUNTER 2024-10-07 14:01 | Emergency (ER) | payer MEDICAID ==
--- NOTE | 2024-10-07 14:35 | ED ---
General Adult HPI - General Chief complaint: Nausea/Vomiting/Diarrhea Stated complaint: NVD Time Seen by Provider: 10/07/24 14:09 Source: patient, RN notes reviewed Mode of arrival: ambulatory Limitations: no limitations - History of Present Illness Initial comments: This is a 34-year-old biological female, transgender male, presenting to the emergency department for complaints of nausea, vomiting, and diarrhea over the past 2 days. Patient states that he will experience recurrent GI bleeding since last October and this is also increased over the past few days. Endorses multiple bouts of nonbloody diarrhea. Denies hematemesis, coffee ground emesis, fevers, chills, urinary complaints. Denies previous surgeries of the abdomen. he has attempted to take his nausea medication and antispasmodic medication for his abdomen with minimal relief. - Related Data Home Medications Medication Instructions Recorded Confirmed Testosterone Cypionate 160 mg IM Q14D 02/14/14 07/13/24 [Depo-Testosterone] Albuterol Inhaler [Ventolin Hfa 2 puff INHALATION RT-QID PRN 06/28/24 07/12/24 Inhaler] Budesonide/Formoterol Fumarate 2 puff INHALATION RT-BID 06/28/24 07/12/24 [Symbicort 160-4.5 Mcg Inhaler] EPINEPHrine (Auto Inject) [Epipen] 0.3 mg IM ONCE PRN 06/28/24 07/12/24 Famotidine 40 mg PO HS 06/28/24 07/13/24 Hydrocortisone Cream 1 applic TOPICAL QID PRN 06/28/24 07/13/24 [Hydrocortisone 2.5% Cream] Levothyroxine Sodium [Synthroid] 25 mcg PO DAILY 06/28/24 07/12/24 Levothyroxine Sodium [Synthroid] 200 mcg PO DAILY 06/28/24 07/12/24 Lisdexamfetamine Dimesylate 30 mg PO DAILY 06/28/24 07/13/24 [Vyvanse] Pantoprazole Sodium [Protonix] 40 mg PO HS 06/28/24 07/13/24 Previous Rx's Medication Instructions Recorded Ondansetron Odt [Zofran ODT] 4 mg PO Q8HR PRN #14 tab 06/03/23 Metoclopramide [Reglan] 10 mg PO TID PRN #15 tab 06/28/24 Sucralfate [Carafate] 1 gm PO BID #14 tablet 06/28/24 Ergocalciferol [Vitamin D2 (1250 1,250 mcg PO WEEKLY #20 cap 08/23/24 Mcg = 01238 Iu)] Pantoprazole Sodium [Protonix] 40 mg PO DAILY #14 tab 10/07/24 Allergies Allergy/AdvReac Type Severity Reaction Status Date / Time Iodine and Iodide Containing Allergy Rash/Hives Verified 10/07/24 14:05 Produc Review of Systems ROS Statement: Those systems with pertinent positive or pertinent negative responses have been documented in the HPI. ROS Other: All systems not noted in ROS Statement are negative. Past Medical History Past Medical History: Cancer, Hyperlipidemia, Thyroid Disorder Additional Past Medical History / Comment(s): thyroid cancer, salivary gland cancer History of Any Multi-Drug Resistant Organisms: None Reported Past Surgical History: Adenoidectomy, Ear Surgery, Tonsillectomy Additional Past Surgical History / Comment(s): thyroidectomy Past Psychological History: No Psychological Hx Reported, ADD/ADHD Smoking Status: Never smoker Past Alcohol Use History: None Reported Past Drug Use History: Marijuana General Exam Limitations: no limitations Neck exam: Present: normal inspection. Absent: tenderness, meningismus, lymphadenopathy Respiratory exam: Present: normal lung sounds bilaterally. Absent: respiratory distress, wheezes, rales, rhonchi, stridor Cardiovascular Exam: Present: regular rate, normal rhythm, normal heart sounds. Absent: systolic murmur, diastolic murmur, rubs, gallop, clicks GI/Abdominal exam: Present: soft, tenderness (mild left abdomen), normal bowel sounds. Absent: distended, guarding, rebound, rigid Extremities exam: Present: normal inspection, full ROM, normal capillary refill. Absent: tenderness, pedal edema, joint swelling, calf tenderness Back exam: Present: normal inspection Skin exam: Present: warm, dry, intact, normal color. Absent: rash Course Vital Signs 10/07/24 14:02 Temperature 97.5 F L Pulse Rate 58 L Respiratory 20 Rate Blood Pressure 158/97 O2 Sat by Pulse 99 Oximetry Medical Decision Making - Medical Decision Making Was pt. sent in by a medical professional or institution (, PA, CUSTOMER MARKETING ASSISTANT, urgent care, hospital, or group home...) When possible be specific @ -No Did you speak to anyone other than the patient for history (EMS, parent, family, police, friend...)? What history was obtained from this source @ -No Did you review nursing and triage notes (agree or disagree)? Why? @ -I reviewed and agree with nursing and triage notes Were old charts reviewed (outside hosp., previous admission, EMS record, old EKG, old radiological studies, urgent care reports/EKG's, group home records)? Report findings @ -No old charts were reviewed Differential Diagnosis (chest pain, altered mental status, abdominal pain women, abdominal pain men, vaginal bleeding, weakness, fever, dyspnea, syncope, headache, dizziness, GI bleed, back pain, seizure, CVA, palpatations, mental health, musculoskeletal)? @ -Differential Abdominal Pain Men: Appendicitis, cholecystitis, diverticulosis, ischemic bowel, pancreatitis, hepatitis, UTI, gastroenteritis, AAA, incarcerated hernia, bowel obstruction, constipation, inflammatory bowel, hepatitis, peptic ulcer disease, splenic infarction, perforated viscus, testicular torsion, this is not meant to be an all-inclusive list EKG interpreted by me (3pts min.). @ -None X-rays interpreted by me (1pt min.). @ -None done CT interpreted by me (1pt min.). @ -None done U/S interpreted by me (1pt. min.). @ -None done What testing was considered but not performed or refused? (CT, X-rays, U/S, labs)? Why? @ -None What meds were considered but not given or refused? Why? @ -None Did you discuss the management of the patient with other professionals (professionals i.e. , PA, CUSTOMER MARKETING ASSISTANT, lab, RT, psych nurse, director social welfare, section beamer, teacher, fire prevention officer, case assembler)? Give summary @ -No Was smoking cessation discussed for >3mins.? @ -No Was critical care preformed (if so, how long)? @ -No Were there social determinants of health that impacted care today? How? (Homelessness, low income, unemployed, alcoholism, drug addiction, transportat ion, low edu. Level, literacy, decrease access to med. care, [facility], rehab)? @ -No Was there de-escalation of care discussed even if they declined (Discuss DNR or withdrawal of care, Hospice)? DNR status @ -No What co-morbidities impacted this encounter? (DM, HTN, Smoking, COPD, CAD, Cancer, CVA, ARF, Chemo, Hep., AIDS, mental health diagnosis, sleep apnea, morbid obesity)? @ -None Was patient admitted / discharged? Hospital course, mention meds given and route, prescriptions, significant lab abnormalities, going to OR and other pertinent info. @ -Discharge. 34-year-old male presenting to emergency room with complaints of abdominal pain, nausea vomiting and diarrhea. Patient has mild tenderness to the left side of the abdomen. He is provided with GI cocktail including Maalox, Protonix, Zofran and fluids. Patient has mild leukocytosis of 11 likely reactive secondary to emesis and diarrhea. CMP is unremarkable. Pancreatic and liver enzymes within normal. Reevaluation after medications patient states that he is feeling symptoms have resolved. Recommend that he follow a clear liquid diet over the next 24 hours and afterwards slowly reintroducing foods or calling the brat diet follow-up with GI specialist. Case discussed with my attending Dr. Morales Undiagnosed new problem with uncertain prognosis? @ -No Drug Therapy requiring intensive monitoring for toxicity (Heparin, Nitro, Insulin, Cardizem)? @ -No Were any procedures done? @ -No Diagnosis/symptom? @ -acute nausea/vomiting/diarrhea Acute, or Chronic, or Acute on Chronic? @ -acute Uncomplicated (without systemic symptoms) or Complicated (systemic symptoms)? @ -uncomplicated Side effects of treatment? @ -No Exacerbation, Progression, or Severe Exacerbation? @ -No Poses a threat to life or bodily function? How? (Chest pain, [place], [place], pneumonia, PE, COPD, DKA, ARF, appy, cholecystitis, CVA, Diverticulitis, Homicidal, Suicidal, threat to staff... and all critical care pts) @ -No - Lab Data Result diagrams: 10/07/24 14:49 10/07/24 14:49 Lab Results 10/07/24 10/07/24 Range/Units 14:49 14:49 WBC 11.18 H (4.50-10.00) 10*3/uL RBC 5.44 (4.40-5.60) 10*6/uL Hgb 16.4 (13.0-17.0) g/dL Hct 47.5 (39.6-50.0) % MCV 87.3 (80.0-97.0) fL MCH 30.1 (27.0-32.0) pg MCHC 34.5 (32.0-37.0) g/dL Plt Count 346 (140-440) 10*3/uL MPV 10.2 (9.5-12.2) fL Immature Gran % (Auto) 0.3 % Neutrophils % 72.5 % Lymphocytes % 18.8 % Monocytes % 5.8 % Eosinophils % 2.1 % Basophils % 0.5 % Immature Gran # 0.03 (0.00-0.04) 10*3/uL Neutrophils # 8.11 H (1.80-7.70) 10*3/uL Lymphocytes # 2.10 (0.90-5.00) 10*3/uL Monocytes # 0.65 (0.20-1.00) 10*3/uL Eosinophils # 0.23 (0.04-0.35) 10*3/uL Basophils # 0.06 (0.00-0.10) 10*3/uL Sodium 140 (137-145) mmol/L Potassium 4.3 (3.5-5.1) mmol/L Chloride 104 (98-107) mmol/L Carbon Dioxide 25 (22-30) mmol/L Anion Gap 11 mmol/L BUN 8 L (9-20) mg/dL Creatinine 0.65 L (0.66-1.25) mg/dL Est GFR (CKD-EPI)AfAm >90 (>60 ml/min/1.73 sqM) Est GFR (CKD-EPI)NonAf >90 (>60 ml/min/1.73 sqM) Glucose 86 (74-99) mg/dL Calcium 9.7 (8.4-10.2) mg/dL Total Bilirubin 0.4 (0.2-1.3) mg/dL AST 25 (17-59) U/L ALT 24 (4-49) U/L Alkaline Phosphatase 66 (38-126) U/L Total Protein 6.7 (6.3-8.2) g/dL Albumin 4.3 (3.5-5.0) g/dL Lipase 105 (23-300) U/L Disposition Clinical Impression: Acute nausea with nonbilious vomiting, Acute diarrhea Disposition: HOME SELF-CARE Condition: Good Instructions (If sedation given, give patient instructions): Acute Nausea and Vomiting (ED), Acute Diarrhea (ED) Additional Instructions: Please return to the Emergency Department if symptoms worsen or any other concerns. Prescriptions: Pantoprazole Sodium [Protonix] 40 mg PO DAILY #14 tab Is patient prescribed a controlled substance at d/c from ED?: No Referrals: Miller Flores MD [Primary Care Provider] - 1-2 days Time of Disposition: 15:57
[2024-10-07] MEDS: MAG HYDROX/AL HYDROX/SIMETH 30 ML CUP PO PRN (14:52)
[2024-10-07] MEDS: ONDANSETRON 4 MG/2 ML VIAL IVP STA (14:53)
[2024-10-07] MEDS: PANTOPRAZOLE 40 MG/10 ML VIAL IVP STA (14:55)
[2024-10-07] MEDS: SODIUM CHLORIDE 0.9% 1,000 ML IV STA (14:57)
[2024-10-07 15:05] LABS: Basophils # (A) 0.06 10*3/uL (0.00-0.10); Basophils % (A) 0.5 %; Eosinophils # (A) 0.23 10*3/uL (0.04-0.35); Eosinophils % (A) 2.1 %; HCT 47.5 % (39.6-50.0); HGB 16.4 g/dL (13.0-17.0); Lymphocytes # (A) 2.10 10*3/uL (0.90-5.00); Lymphocytes % (A) 18.8 %; MCH 30.1 pg (27.0-32.0); MCHC 34.5 g/dL (32.0-37.0); MCV 87.3 fL (80.0-97.0); Monocytes # (A) 0.65 10*3/uL (0.20-1.00); Monocytes % (A) 5.8 %; Neutrophils # (A) 8.11 10*3/uL (1.80-7.70); Neutrophils % (A) 72.5 %; Platelet Count 346 10*3/uL (140-440); RBC 5.44 10*6/uL (4.40-5.60); RDW 12.6 % (11.5-14.5); WBC 11.18 10*3/uL (4.50-10.00)
[2024-10-07 15:20] LABS: ALT 24 U/L (4-49); AST 25 U/L (17-59); African American GFR (CKD) >90 (>60 ml/min/1.73 sqM); Albumin 4.3 g/dL (3.5-5.0); Alkaline Phosphatase 66 U/L (38-126); Anion Gap 11 mmol/L; Blood Urea Nitrogen 8 mg/dL (9-20); Calcium 9.7 mg/dL (8.4-10.2); Carbon Dioxide 25 mmol/L (22-30); Chloride 104 mmol/L (98-107); Glucose 86 mg/dL (74-99); Lipase 105 U/L (23-300); Non-African American GFR(CKD) >90 (>60 ml/min/1.73 sqM); Potassium 4.3 mmol/L (3.5-5.1); Sodium 140 mmol/L (137-145); Total Protein 6.7 g/dL (6.3-8.2)
[2024-10-07 16:28] VITALS: BP 142/78; PULSE 78; RESP 18; TEMP 98.1
== END 2024-10-07 16:28 | disposition home or self-care (01) ==
LOC: EC 14:01
DX: R11.2 Nausea with vomiting, unspecified (principal); R19.7 Diarrhea, unspecified; Z88.8 Allergy status to other drugs, medicaments and biological substances
CPT/HCPCS: 36415; 80053; 83690; 85025; 99284; 96374; 96375; 96361; J2405; J2470